=== PATIENT | male | born 1945 | race Caucasian/White ===

== ENCOUNTER 2016-11-22 17:14 | Observation (INO) ==
[2016-11-22] MEDS ORDERED: ASPIRIN 325 MG TABLET ONE (17:47)
[2016-11-22] MEDS ORDERED: ASPIRIN 325 MG TABLET PO STA (17:54)
[2016-11-22 18:04] LABS: Basophils # 0.1 10*3/uL (0.0-0.2); Eosinophils # 0.3 10*3/uL (0.0-0.87); Hematocrit 44.5 VOL% (42.0-52.0); Hemoglobin 14.6 GM/DL (14.0-18.0); Immature Granulocytes % 0.4 %; Immature Granulocytes Absolute 0.03 #; Lymphocytes # 1.6 10*3/uL (1.4-4.0); Lymphocytes % 22.9 % (21.2-54.2); Mean Corpuscular HGB Conc 32.8 GM/DL (32-36); Mean Corpuscular Hemoglobin 28 PG (27-34); Mean Corpuscular Volume 85.2 FL (87-102); Mean Platelet Volume 10.9 FL (9.6-12.0); Monocytes # 0.7 10*3/uL (0.11-0.8); Monocytes % 10.6 % (1.7-12.7); Neutrophils # 4.3 10*3/uL (1.4-7.4); Neutrophils % 61.1 % (38.7-73.9); Platelet Count 183 T/CUMM (130-400); Red Blood Count 5.22 MC/CUMM (3.8-5.5); Red Cell Distribution Width 14.4 % (9.3-17.3)
[2016-11-22 18:06] LABS: INR 1.1; PT Patient Result 11.4 SECS
--- NOTE | 2016-11-22 18:27 | XRay Report ---
XR chest 1V portable Indication: Chest pain. Comparison: Chest x-ray 10/09/2014. Technique: Portable AP chest was performed. Findings: Mild cardiomegaly appears stable. Sternal wires are unchanged. Cervical fusion is present. Lungs are clear. Bones and soft tissues are unremarkable. Impression: 1. No evidence of acute pathology. 2. Stable mild cardiomegaly. 11/22/2016 6:23 PM PROCEDURE INTERPRETED AT [facility] DEPARTMENT OF RADIOLOGY Final Report Signed by: Dr. Peter Abreu
[2016-11-22 18:40] LABS: Alanine Aminotransferase 43 U/L (16-61); Alkaline Phosphatase 144 U/L (45-117); Aspartate Amino Transferase 47 U/L (0-37); Blood Urea Nitrogen 12 MG/DL (7-18); Glucose 89 MG/DL (74-106); Magnesium 2.5 MG/DL (1.8-2.4); Osmolality,Calculated 279.3 MOS/KG (273-304); Sodium 141 MMOL/L (136-145); Total Protein 7.1 G/DL (6.4-8.3); Troponin I Only < 0.015 NG/ML (0.00-0.045)
[2016-11-22] MEDS ORDERED: NITROGLYCERIN SL 0.4 MG TABLET SL STA (18:51)
[2016-11-22] MEDS ORDERED: FUROSEMIDE 40 MG/4 ML VIAL IV STA (19:35)
[2016-11-22] MEDS ORDERED: FUROSEMIDE 40 MG/4 ML VIAL ONE (19:37)
[2016-11-22] MEDS ORDERED: MAGNESIUM SULF RIDER 4 GM in PREMIX 1 EACH IV PRN (19:52)
[2016-11-22] MEDS ORDERED: ONDANSETRON 4 MG/2 ML VIAL IV PRN (19:52)
[2016-11-22] MEDS ORDERED: ACETAMINOPHEN 325 MG TABLET PO PRN (19:52)
[2016-11-22] MEDS ORDERED: MAGNESIUM SULF RIDER 2 GM in PREMIX 1 EACH IV PRN (19:52)
[2016-11-22] MEDS ORDERED: MORPHINE 2 MG/1 ML SYRINGE IV PRN (19:52)
--- NOTE | 2016-11-22 19:52 | Emergency Department Note ---
IMichel Mantricia, am scribing for, and in the presence of, Marisabel Nichols DO 18:49. ISimone Debra, DO, personally performed the services described in this documentation, ascribed by Pranav Pearson in my presence, and it is both accurate and complete 950 . Arrival - Arrival Chief Complaint: Chest Pain Stated Complaint: chest pain ED Nursing Triage Note: Pt c/o left sided chest pain under his left breast worse with inspiration/sneezing since this am but also having weakness this week. Mode of Arrival: Ambulatory Limitations: No Limitations Source: Patient - History of Present Illness HPI Narrative: Pt is a 71 y/o white male ambulating to ED with c/o left sided chest pain that onset this morning. Pt's photographer assistant is Dr. Bryant; his PCP is Dr. Lucero. He states that he is no pain at time of exam but does reports that the pain worsens with deep breaths. Since being in ED, pt was given ASA and states that he does feel some relief. Pt has a PSHx of CABG and has a PMHx of CVA, CAD, HTN , Afib, and COPD. He is currently taking hypertensives and reports that he did take his medication this morning. At time of exam, pt's heart rate is 67 and has a blood pressure of 173/95. No other complaints were reported to ED. Onset (ago): hour(s) Consistency: constant Severity: mild Allergies/Adverse Reactions: Allergies Allergy/AdvReac Type Severity Reaction Status Date / Time Shellfish Allergy Unknown/Unable Verified 01/18/15 06:30 to obtain Home Medications: Home Medications Medication Instructions Recorded Confirmed Type Clopidogrel [Plavix] 75 mg PO DAILY 01/18/15 02/16/15 History Ferrous Sulfate [Ferrous Sulfate 325 mg PO TID 01/18/15 02/16/15 History Cap] Aspirin EC Tab 81 mg PO DAILY tablet 01/20/15 02/16/15 Rx Furosemide Tab [Lasix Tab] 40 mg PO DAILY #30 tablet 01/20/15 02/16/15 Rx Isosorbide Mononitrate [Imdur] 30 mg PO DAILY #30 tablet 01/20/15 02/16/15 Rx Potassium Chloride 20 meq PO DAILY #30 tablet.er 01/20/15 02/16/15 Rx Sertraline [Zoloft] 50 mg PO BEDTIME #30 tablet 01/20/15 02/16/15 Rx Spironolactone [Aldactone] 25 mg PO DAILY #30 tablet 01/20/15 02/16/15 Rx Atorvastatin Calcium [Lipitor] 80 mg PO BEDTIME 02/16/15 02/16/15 History Lisinopril [Prinivil] 20 mg PO BID 02/16/15 02/16/15 History Review of System - Review of System Constitutional: Absent: chills, diaphoresis, fever Eyes: Absent: pain Respiratory: Absent: cough Cardiovascular: Present: chest pain. Absent: palpitations Gastrointestinal: Absent: abdominal pain, nausea, vomiting, diarrhea Musculoskeletal: Absent: arm pain, back pain, leg pain, neck pain Medical,Surgical,& Family Hx - Medical History Cardio: History of: Cerebrovascular Disease, CAD, Hypertension, Cardiovascular Problems (atrial fibrillation cardioverted by Dr. 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) Respiratory: History of: COPD Genitourinary: History of: Kidney Stones Gastrointestinal: No history of: GI Problems (refuses colonoscopy) Musculoskeletal: History of: Musculoskeletal Problems (arthritis to R knee) Hematology: History of: Anemia, Blood Transfusion Reaction - Surgical History Cardiac Surgeries: Sugical HX of: Femoral-Popliteal Bypass Graft, Cardiac Catheterization, Cardiac Surgery (Cabg) Thoracic Surgeries: Patient denies;: Organ Transplant HEENT Surgeries: Surgical HX of: Eye Surgery Patient denies: Tonsilectomy & Adenoidectomy Reproductive Surgeries: Patient denies;: Genitourinary Surgery - Family History Family History: Reports;: Family Heart Disease (brother), Family Hypertension - Social History Smoking Status: Never smoker Exam Vital Signs: Vital Signs Temperature 97.6 F 11/22/16 17:23 Pulse Rate 60 11/22/16 19:00 Respiratory Rate 20 11/22/16 19:00 Blood Pressure 156/105 11/22/16 19:00 O2 Sat by Pulse Oximetry 99 11/22/16 19:00 - General General appearance: alert, in no apparent distress - Head Head exam: Present: atraumatic, normocephalic, normal inspection - Eye Eye exam: Present: normal appearance, PERRL, EOMI - ENT ENT exam: Present: normal exam, normal oropharynx, mucous membranes moist, TM's normal bilaterally, normal external ear exam - Neck Neck exam: Present: normal inspection, full ROM, trachea midline. Absent: tenderness - Chest Chest inspection: Present: normal inspection, symmetric chest wall rise. Absent : tenderness - Respiratory Respiratory exam: Present: normal lung sounds bilaterally - Cardiovascular Cardiovascular exam: Present: regular rate, normal rhythm, normal heart sounds - Abdominal Exam Abdominal exam: Present: soft, normal bowel sounds. Absent: distention, tenderness, guarding, rebound - Extremities Exam Extremities exam: Present: full ROM, normal capillary refill, other (+1 nonpitting edema LE bilat). Absent: tenderness - Back Exam Back exam: Present: normal inspection, full ROM. Absent: tenderness - Neurological Exam Neurological exam: Present: alert, oriented X3, CN II-XII intact, normal gait, reflexes normal - Psychiatric Psychiatric exam: Present: normal affect, normal mood - Skin Skin exam: Present: warm, dry, intact, normal color Course Course Narrative: with Dr Nieves who will admit pt. pt is stable at this time and not having any chest pain Results - Labs CBC & BMP: 11/22/16 17:48 11/22/16 17:48 Lab Results: I have reviewed the patients labs - EKG EKG results: interpreted by LALITHA MABRY, no acute changes - Diagnostic Findings Procedure: Chest x-ray: report reviewed by me (1. No evidence of acute pathology. 2. Stable mild cardiomegaly.) Disposition Clinical Impression: Atypical chest pain Case discussed with: patient, patient's family Disposition: Still a Patient Condition: Stable Time of Disposition: 19:52
[2016-11-22 20:00] LABS: Band Neutrophils 1 % (0-10); Burr Cells Few; Eosinophils 2 % (0-10); Lymphocytes 21 % (20-55); Ovalocytes Few; Platelet Estimate Normal; Poikilocytosis 1+; Segmented Neutrophils 70 % (50-85); Total Cells Counted 100
[2016-11-22] MEDS ORDERED: ENOXAPARIN 40 MG/0.4 ML SYRINGE SUBCUT SCH (20:00)
[2016-11-22 20:01] LABS: Apearance,Urine CLOUDY (Clear); Bacteria,Urine Few /HPF (Few); Bilirubin,Urine Negative (Negative); Blood, Urine Negative (Negative); Glucose,Urine (UA) Negative (Negative); Ketones,Urine Negative (Negative); Mucus,Urine Occasional /LPF (Occasional); Nitrite,Urine Negative (Negative); Protein,Urine Negative; RBC,Urine 2 /HPF (0-4); Urine Color Yellow (Yellow); Urine Specific Gravity 1.013 (1.001-1.035); WBC,Urine 2 /HPF (0-6)
[2016-11-22 20:01] LABS: Tear Drop Cells Few
--- NOTE | 2016-11-23 02:54 | EKG Report ---
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
--- NOTE | 2016-11-23 04:14 | EKG Report ---
Stationary ECG Study [facility] Test Date: 11/23/2016 4:11:28 AM Pat Name: MADAI AGRAWAL Department: Room: 285 Gender: M Respiratory Physician: Demetrius : 1945 Requested by: Marisabel Nichols Order Number: [id number] Reading MD: NICK MOSS Intervals [place] Rate: 69 P: 65 ID: 175 QRS: 109 QRSD: 103 T: 60 QT: 430 QTc: 450 Interpretive Statements SINUS RHYTHM WITH FREQUENT VENTRICULAR PREMATURE COMPLEXES ABNORMAL RIGHT AXIS DEVIATION INCOMPLETE RIGHT BUNDLE BRANCH BLOCK Electronically Signed On 11-25-16 18:39:24 CDT by NICK MOSS [email or web address]
[2016-11-23 05:50] LABS: Troponin I Only 0.016 NG/ML (0.00-0.045)
[2016-11-23] MEDS ORDERED: CLOPIDOGREL 75 MG TABLET PO SCH (09:00)
[2016-11-23] MEDS ORDERED: TAMSULOSIN 0.4 MG CAPSULE PO SCH (09:00)
[2016-11-23] MEDS ORDERED: LISINOPRIL 20 MG TABLET PO SCH (09:00)
[2016-11-23] MEDS ORDERED: CARVEDILOL 6.25 MG TABLET PO SCH (09:00)
[2016-11-23] MEDS ORDERED: ASPIRIN EC 81 MG TABLET PO SCH (09:00)
[2016-11-23] MEDS ORDERED: hydrALAZINE 20 MG/1 ML VIAL IV PRN (09:25)
--- NOTE | 2016-11-23 09:27 | Cardiology History & Physical ---
Addendum entered and electronically signed by Ann Tomlin NP 11/23/16 14:07 : The patient has undergone echocardiogram today which revealed EF 45%, normal diastolic function, mild LVH, mild left atrial enlargement, mild MR, mild TR. Right upper quadrant ultrasound revealed cholelithiasis with simple appearing right renal cyst. Venous dopplers were negative for DVT. CT chest suggested no evidence of PE but did reveal multiple nodular densities present closely in the upper lobes, majority peripheral and the largest estimated to be 8mm in size, possibly representing septic emboli, although metastatic disease could not be excluded. Original Note: <Ann Tomlin - Last Filed: 11/23/16 13:26> Assessment and Plan - Time spent with patient Time spent with patient: Greater than 30 minutes (due to assessment, plan, and documentation) (1) Chest pain Status: Acute Assessment and plan: See plan of care listed below. Current Visit: No (2) Painful respiration Status: Acute Assessment and plan: See plan of care listed below. Current Visit: Yes (3) Fatigue Status: Acute Assessment and plan: See plan of care listed below. Current Visit: Yes (4) Bilateral lower extremity edema Status: Acute Assessment and plan: See plan of care listed below. Current Visit: Yes (5) Elevated bilirubin Status: Acute Assessment and plan: See plan of care listed below. Current Visit: Yes (6) Coronary artery disease Status: Chronic Assessment and plan: See plan of care listed below. Current Visit: No (7) Ischemic dilated cardiomyopathy Status: Chronic Assessment and plan: See plan of care listed below. Current Visit: No (8) Hypertension Status: Chronic Assessment and plan: See plan of care listed below. Current Visit: No Qualifiers: Hypertension type: essential hypertension Qualified Code(s): I10 - Essential (primary) hypertension (9) Dyslipidemia Status: Chronic Assessment and plan: See plan of care listed below. Current Visit: No (10) History of CVA (cerebrovascular accident) Status: Chronic Assessment and plan: See plan of care listed below. Current Visit: Yes History of Present Illness Chief complaint: chest pain History of present illness: Vocational Training Director: Dr. Bryant PCP: Dr. Zimmer Mr. Yen is a 71 year old male with a history of coronary artery disease, ischemic cardiomyopathy, hypertension, dyslipidemia, prior stroke. He is a lifetime nonsmoker. He is status post coronary artery bypass grafting with vein grafts to the anterior descending, diagonal, circumflex, and right coronary arteries by Dr. Krishnamurthy on 10/01/14. Upon induction of anesthesia, he experienced hypotension leading to ventricular fibrillation with unsuccessful cardioversion. He was subsequently prepped emergently for bypass surgery. Following bypass surgery, he underwent FISHER EEL PCI of the SVG to the dRCA/PDA with drug eluting stents x3, and PCI of the ostium of the SVG to the LAD with a single drug eluting stent. His status post CVA in 2013. 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 Mr. Yen presented to the emergency room with complaints of chest discomfort. He reports yesterday morning he woke up with pain in his left rib cage beneath his breast. He only notices this pain whenever he takes a deep breath. He states it feels like he has pulled a muscle. He can identify no other exacerbating or alleviating factors. He denies exertional chest pain but does have some dyspnea on exertion. His is at the bedside and she notes that he seems to have a lack of energy lately. He has also noticed some indigestion the past couple of days. 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 He also notes that last weekend he was at a team roping event and was on a horse approximately 6 hours each day. He denies any recent palpitations, nausea, vomiting, diarrhea, constipation, melena. He does admit to occasional bilateral lower extremity edema. He has had negative cardiac biomarkers but EKG revealed frequent PVCs which appeared to be a new finding for him when compared to prior EKGs. Given his history and present symptoms, we will proceed with nuclear stress testing to rule out new or worsening ischemia. He was also noted to have an elevated bilirubin but denies right upper quadrant pain or right shoulder pain or nausea or vomiting. We will check an abdominal ultrasound. Given the nature of his dyspnea, we will also rule out PE. Will await further recommendations from Dr. Marte. ASSESSMENT/PLAN: 1. CHEST PAIN - Although his chest pain is atypical in nature, he does report recent easy fatiguability. EKG also reveals frequent PVCs which appears to be a new finding for him when reviewing prior records. His cardiac biomarkers are negative. We will proceed with nuclear stress testing. 2. PAINFUL INSPIRATION - Given his history of CVA and current presentation, we will obtain CT chest PE protocol to rule out PE. 3. FATIGUE - Will schedule for nuclear stress testing for today. 4. BLE EDEMA - Check BLE venous dopplers to rule out DVT. 5. ELEVATED BILIRUBIN - Denies abdominal pain, nausea, or vomiting. Will check abdominal ultrasound. 6. CORONARY ARTERY DISEASE - He is status post coronary artery bypass grafting with vein grafts to the anterior descending, diagonal, circumflex, and right coronary arteries by Dr. Krishnamurthy on 10/01/14. Upon induction of anesthesia, he experienced hypotension leading to ventricular fibrillation with unsuccessful cardioversion. He was subsequently prepped emergently for bypass surgery. Following bypass surgery, he underwent FISHER EEL PCI of the SVG to the dRCA/PDA with drug eluting stents x3, and PCI of the ostium of the SVG to the LAD with a single drug eluting stent. 7. ISCHEMIC CARDIOMYOPATHY - Last echocardiogram done March 2016 revealed EF 55%. Will recheck echocardiogram. 8. HYPERTENSION - Mildly elevated this morning. Patient is NPO for numerous diagnostic studies this morning. Will monitor and use PRN IV hydralazine if needed prior to patient taking his home medications. Will monitor and adjust accordingly. 9. DYSLIPIDEMIA - Continue lipid lowering agent. Will check lipid panel. 10. HISTORY OF CVA - in 2013, no deficits. Home Medications Medication Instructions Recorded Confirmed Type Clopidogrel [Plavix] 75 mg PO DAILY 01/18/15 11/22/16 History Aspirin EC Tab 81 mg PO DAILY tablet 01/20/15 11/22/16 Rx Sertraline [Zoloft] 50 mg PO BEDTIME #30 tablet 01/20/15 11/22/16 Rx Atorvastatin Calcium [Lipitor] 80 mg PO BEDTIME 02/16/15 11/22/16 History Lisinopril [Prinivil] 20 mg PO BID 02/16/15 11/22/16 History Carvedilol 6.25 mg PO DAILY 11/22/16 11/22/16 History Tamsulosin [Flomax] 0.4 mg PO DAILY 11/22/16 11/22/16 History Allergies Allergy/AdvReac Type Severity Reaction Status Date / Time Shellfish Allergy Unknown/Unable Verified 01/18/15 06:30 to obtain 12 point system: reviewed and no additional remarkable complaints except as stated Medical,Surgical,& Family Hx - Medical History Cardio: History of: Cerebrovascular Disease, CAD, Hypertension, Cardiovascular Problems (atrial fibrillation cardioverted by Dr. Patel 2013) No history of: RI, Pacemaker Psychological: History of: Anxiety Disorders Neurology: History of: Cerebrovascular Accident (right occipital acute CVA 01/02) No history of: Seizures, Vertigo HEENT: History of: Eye Problem (left eye removed as kid FAKE LEFT EYE) Respiratory: History of: COPD Genitourinary: History of: Kidney Stones Gastrointestinal: No history of: GI Problems (refuses colonoscopy) Musculoskeletal: History of: Musculoskeletal Problems (arthritis to R knee) No history of: Amputation Hematology: History of: Anemia, Blood Transfusion Reaction - Surgical History Cardiac Surgeries: Sugical HX of: Femoral-Popliteal Bypass Graft, Cardiac Catheterization, Cardiac Surgery (Cabg) Thoracic Surgeries: Patient denies;: Organ Transplant, Lobectomy HEENT Surgeries: Surgical HX of: Eye Surgery Patient denies: Tonsilectomy & Adenoidectomy Abdominal Surgeries: Patient denies: Abdominal Surgery Reproductive Surgeries: Patient denies;: Genitourinary Surgery - Family History Family History: Reports;: Family Heart Disease (brother), Family Hypertension Denies;: Family Stroke, Additional Family History - Social History Smoking Status: Never smoker Frequency of Alcohol Use: None Type of Drug Use: None Marital Status: Lives With:: Spouse Functional capacity: independent ambulation Cardiology Physical Exam - Constitutional Vitals: Vital Signs Temp Pulse Resp BP Pulse Ox 97.4 F L 65 20 166/82 96 11/23/16 08:00 11/23/16 08:00 11/23/16 08:00 11/23/16 08:00 11/23/16 08:00 Intake and Output 11/22/16 11/23/16 11/23/16 22:59 06:59 14:59 Intake Total 0 / 0 Balance 0 / 0 Intake: Oral 0 / 0 Other: Voiding Method Toilet # Voids 2 Weight 176 lb 3.2 oz 176 lb Exam: General appearance: Pleasant and cooperative. no acute distress. Head exam: Present: normal inspection, normocephalic, atraumatic. Absent: hematoma, laceration Eye exam: Present: EOMI, chronic droop of left eyelid (patient lost his left eye during childhood). Absent: conjunctival injection, nystagmus, periorbital swelling, scleral icterus, laceration to eyelids ENT exam: Present: normal exam, normal external ear exam Neck exam: Present: normal inspection. Absent: lymphadenopathy, meningismus, tenderness, thyromegaly, carotid bruit Respiratory exam: Present: clear to auscultation bilaterally. Absent: accessory muscle use, chest wall tenderness, rales, rhonchi, wheezing. Cardiovascular exam: Present: regular rate and rhythm. Absent: gallop, JVD, rubs, murmur GI/Abdominal exam: Present: normal bowel sounds, soft. Absent: distended, firm , guarding, hernia, mass, tenderness, rebound. Extremities exam: Present: normal inspection, normal capillary refill. Upper extremity pulses 2+. Lower extremity pulses 2+. Absent: calf tenderness, edema Musculoskeletal: Present: No Fluid Collection, No Pain, Normal Range of Motion Back exam: Present: normal inspection. Absent: muscle spasm, vertebral tenderness Neurological exam: Present: alert, oriented X3, grossly intact without resting or essential tremor Psychiatric exam: Present: normal affect, normal mood Skin exam: Present: normal color, warm, dry, intact. Absent: cyanosis, diaphoretic, rash, urticaria Result/EKG - Labs CBC & BMP: 11/22/16 17:48 11/22/16 17:48 Lab Results: I have reviewed the past 24 hour labs Labs: Laboratory Results - last 24 hr 11/22/16 11/22/16 11/22/16 17:48 17:48 17:48 WBC 7.0 RBC 5.22 Hgb 14.6 Hct 44.5 MCV 85.2 L MCH 28 MCHC 32.8 RDW 14.4 Plt Count 183 MPV 10.9 Neut % (Auto) 61.1 Lymph % (Auto) 22.9 [place] % (Auto) 10.6 Eos % (Auto) 4.0 Baso % (Auto) 1.0 H Neut # (Auto) 4.3 Lymph # (Auto) 1.6 [place] # (Auto) 0.7 Eos # (Auto) 0.3 Baso # (Auto) 0.1 Total Counted 100 Immature Gran % 0.4 Nucleated RBC % 0.0 Immature Gran # 0.03 Segmented Neutrophils 70 Band Neutrophils 1 Lymphocytes 21 Monocytes 6 Eosinophils 2 Nucleated RBCs # 0.00 Platelet Estimate Normal Immature Plt Fraction 0.0 Poikilocytosis 1+ Tear Drop Cells Few Ovalocytes Few Chano Cells Few INR 1.1 PT Patient/Control Mix 11.4 Sodium 141 Potassium 4.0 Chloride 108 H Carbon Dioxide 27 Anion Gap 10.0 BUN 12 Creatinine 0.80 GFR Calculation 105 BUN/Creatinine Ratio 15.00 Glucose 89 Calculated Osmolality 279.3 Calcium 8.0 L Magnesium 2.5 H Total Bilirubin 2.10 H AST 47 H ALT 43 Alkaline Phosphatase 144 H Total Creatine Kinase 269 CK-MB (CK-2) < 1.0 Troponin I < 0.015 B-Natriuretic Peptide Total Protein 7.1 Albumin 3.0 L Globulin 4.1 H Albumin/Globulin Ratio 0.7 L Urine Color Urine Appearance Urine pH Ur Specific Stanton Urine Protein Urine Glucose (UA) Urine Ketones Urine Blood Urine Nitrate Urine Bilirubin Urine Urobilinogen Urine Leukocytes Urine RBC Urine WBC Urine WBC Clumps Urine Bacteria Urine Mucus Ur Culture Indicated? 11/22/16 11/22/16 11/23/16 17:48 17:52 04:28 WBC RBC Hgb Hct MCV MCH MCHC RDW Plt Count MPV Neut % (Auto) Lymph % (Auto) [place] % (Auto) Eos % (Auto) Baso % (Auto) Neut # (Auto) Lymph # (Auto) [place] # (Auto) Eos # (Auto) Baso # (Auto) Total Counted Immature Gran % Nucleated RBC % Immature Gran # Segmented Neutrophils Band Neutrophils Lymphocytes Monocytes Eosinophils Nucleated RBCs # Platelet Estimate Immature Plt Fraction Poikilocytosis Tear Drop Cells Ovalocytes Chano Cells INR PT Patient/Control Mix Sodium Potassium Chloride Carbon Dioxide Anion Gap BUN Creatinine GFR Calculation BUN/Creatinine Ratio Glucose Calculated Osmolality Calcium Magnesium Total Bilirubin AST ALT Alkaline Phosphatase Total Creatine Kinase 247 CK-MB (CK-2) < 1.0 Troponin I 0.016 B-Natriuretic Peptide 454 H Total Protein Albumin Globulin Albumin/Globulin Ratio Urine Color Yellow Urine Appearance Cloudy Urine pH 7.0 Ur Specific Stanton 1.013 Urine Protein Negative Urine Glucose (UA) Negative Urine Ketones Negative Urine Blood Negative Urine Nitrate Negative Urine Bilirubin Negative Urine Urobilinogen 2.0 H Urine Leukocytes Negative Urine RBC 2 Urine WBC 2 Urine WBC Clumps Occasional Urine Bacteria Few Urine Mucus Occasional Ur Culture Indicated? Not indicated - EKG EKG results: interpreted by me, sinus rhythm (frequent PVCs) <Ramona Marte - Last Filed: 11/23/16 17:16> History of Present Illness History of present illness: Ann agree. Overall his chest pain symptoms are atypical of cardiac disease and seem more pleuritic in nature. However, he does have a new onset of frequent premature ventricular contractions which could represent ischemia. Accordingly, we will workup both his pleuritic chest pain as well as rule out ischemia. Cardiology Physical Exam - Constitutional Vitals: Vital Signs Temp Pulse Resp BP Pulse Ox 97.3 F L 72 18 123/85 96 11/23/16 16:00 11/23/16 16:00 11/23/16 16:00 11/23/16 16:00 11/23/16 16:00 Intake and Output 11/23/16 11/23/16 11/23/16 07:59 15:59 23:59 Intake Total 0 / 0 480 / 480 Balance 0 / 0 480 / 480 Intake: Oral 0 / 0 480 / 480 Other: Voiding Method Toilet Toilet # Voids 2 2 Weight 79.832 kg Patient Weight 11/23/16 23:59 Weight 79.832 kg Result/EKG - Labs CBC & BMP: 11/22/16 17:48 11/22/16 17:48 Labs: Laboratory Results - last 24 hr 11/22/16 11/22/16 11/22/16 17:48 17:48 17:48 WBC 7.0 RBC 5.22 Hgb 14.6 Hct 44.5 MCV 85.2 L MCH 28 MCHC 32.8 RDW 14.4 Plt Count 183 MPV 10.9 Neut % (Auto) 61.1 Lymph % (Auto) 22.9 [place] % (Auto) 10.6 Eos % (Auto) 4.0 Baso % (Auto) 1.0 H Neut # (Auto) 4.3 Lymph # (Auto) 1.6 [place] # (Auto) 0.7 Eos # (Auto) 0.3 Baso # (Auto) 0.1 Total Counted 100 Immature Gran % 0.4 Nucleated RBC % 0.0 Immature Gran # 0.03 Segmented Neutrophils 70 Band Neutrophils 1 Lymphocytes 21 Monocytes 6 Eosinophils 2 Nucleated RBCs # 0.00 Platelet Estimate Normal Immature Plt Fraction 0.0 Poikilocytosis 1+ Tear Drop Cells Few Ovalocytes Few Chano Cells Few INR 1.1 PT Patient/Control Mix 11.4 D-Dimer, Quantitative Sodium 141 Potassium 4.0 Chloride 108 H Carbon Dioxide 27 Anion Gap 10.0 BUN 12 Creatinine 0.80 GFR Calculation 105 BUN/Creatinine Ratio 15.00 Glucose 89 Calculated Osmolality 279.3 Calcium 8.0 L Magnesium 2.5 H Total Bilirubin 2.10 H AST 47 H ALT 43 Alkaline Phosphatase 144 H Total Creatine Kinase 269 CK-MB (CK-2) < 1.0 Troponin I < 0.015 B-Natriuretic Peptide Total Protein 7.1 Albumin 3.0 L Globulin 4.1 H Albumin/Globulin Ratio 0.7 L Triglycerides Cholesterol LDL Cholesterol VLDL Cholesterol HDL Cholesterol Heart Disease Risk Ratio Urine Color Urine Appearance Urine pH Ur Specific Stanton Urine Protein Urine Glucose (UA) Urine Ketones Urine Blood Urine Nitrate Urine Bilirubin Urine Urobilinogen Urine Leukocytes Urine RBC Urine WBC Urine WBC Clumps Urine Bacteria Urine Mucus Ur Culture Indicated? 11/22/16 11/22/16 11/23/16 17:48 17:52 04:27 WBC RBC Hgb Hct MCV MCH MCHC RDW Plt Count MPV Neut % (Auto) Lymph % (Auto) [place] % (Auto) Eos % (Auto) Baso % (Auto) Neut # (Auto) Lymph # (Auto) [place] # (Auto) Eos # (Auto) Baso # (Auto) Total Counted Immature Gran % Nucleated RBC % Immature Gran # Segmented Neutrophils Band Neutrophils Lymphocytes Monocytes Eosinophils Nucleated RBCs # Platelet Estimate Immature Plt Fraction Poikilocytosis Tear Drop Cells Ovalocytes Wallace Cells INR PT Patient/Control Mix D-Dimer, Quantitative Sodium Potassium Chloride Carbon Dioxide Anion Gap BUN Creatinine GFR Calculation BUN/Creatinine Ratio Glucose Calculated Osmolality Calcium Magnesium Total Bilirubin AST ALT Alkaline Phosphatase Total Creatine Kinase CK-MB (CK-2) Troponin I B-Natriuretic Peptide 454 H Total Protein Albumin Globulin Albumin/Globulin Ratio Triglycerides 72 Cholesterol 113 LDL Cholesterol 63.0 VLDL Cholesterol 14.4 HDL Cholesterol 47 Heart Disease Risk Ratio 2.40 Urine Color Yellow Urine Appearance Cloudy Urine pH 7.0 Ur Specific Stanton 1.013 Urine Protein Negative Urine Glucose (UA) Negative Urine Ketones Negative Urine Blood Negative Urine Nitrate Negative Urine Bilirubin Negative Urine Urobilinogen 2.0 H Urine Leukocytes Negative Urine RBC 2 Urine WBC 2 Urine WBC Clumps Occasional Urine Bacteria Few Urine Mucus Occasional Ur Culture Indicated? Not indicated 11/23/16 11/23/16 04:28 11:44 WBC RBC Hgb Hct MCV MCH MCHC RDW Plt Count MPV Neut % (Auto) Lymph % (Auto) [place] % (Auto) Eos % (Auto) Baso % (Auto) Neut # (Auto) Lymph # (Auto) [place] # (Auto) Eos # (Auto) Baso # (Auto) Total Counted Immature Gran % Nucleated RBC % Immature Gran # Segmented Neutrophils Band Neutrophils Lymphocytes Monocytes Eosinophils Nucleated RBCs # Platelet Estimate Immature Plt Fraction Poikilocytosis Tear Drop Cells Ovalocytes Chano Cells INR PT Patient/Control Mix D-Dimer, Quantitative 0.9 Sodium Potassium Chloride Carbon Dioxide Anion Gap BUN Creatinine GFR Calculation BUN/Creatinine Ratio Glucose Calculated Osmolality Calcium Magnesium Total Bilirubin AST ALT Alkaline Phosphatase Total Creatine Kinase 247 CK-MB (CK-2) < 1.0 Troponin I 0.016 B-Natriuretic Peptide Total Protein Albumin Globulin Albumin/Globulin Ratio Triglycerides Cholesterol LDL Cholesterol VLDL Cholesterol HDL Cholesterol Heart Disease Risk Ratio Urine Color Urine Appearance Urine pH Ur Specific Stanton Urine Protein Urine Glucose (UA) Urine Ketones Urine Blood Urine Nitrate Urine Bilirubin Urine Urobilinogen Urine Leukocytes Urine RBC Urine WBC Urine WBC Clumps Urine Bacteria Urine Mucus Ur Culture Indicated?
[2016-11-23 10:01] LABS: Risk Ratio 2.4; VLDL CHOLESTEROL 14.4 MG/DL
--- NOTE | 2016-11-23 10:29 | Ultrasound Report ---
Venous Doppler ultrasound bilateral lower extremities Indication: Edema Comparison: None available Findings: No evidence of echogenic, noncompressible thrombus seen in the visualized veins of the extremities. Color Doppler venous waveform pattern is within normal limits. Impression: No evidence of deep venous thrombosis. Ultrasound images stored and captured. PROCEDURE INTERPRETED AT [facility] DEPARTMENT OF RADIOLOGY Final Report Signed by: Dr. Parag Mancuso
--- NOTE | 2016-11-23 10:33 | Ultrasound Report ---
Right upper quadrant ultrasound Indication: Abdominal Pain Findings: The liver is normal in size and echogenicity. The gallbladder has small calculi present. The gallbladder wall thickness is 4.5 mm . The common bile duct measures 6.0 mm. The visualized portion of the pancreas appear within normal limits There is a small simple appearing cysts and measures 1.2 x 1.2 x 1.1 cm on the lower pole. Otherwise the right kidney is normal in size and echogenicity and measures 11.0 cm . No free fluid or free air seen. Impression: Cholelithiasis. Simple appearing right renal cyst. No other evidence of abnormality demonstrated. Ultrasound images stored and captured. PROCEDURE INTERPRETED AT [facility] DEPARTMENT OF RADIOLOGY Final Report Signed by: Dr. Parag Mancuso
[2016-11-23] MEDS ORDERED: REGADENOSON 0.4 MG/5 ML SYRINGE IV ONE (11:03)
--- NOTE | 2016-11-23 11:12 | Event Note ---
Patient underwent Cardiolite stress test, transitioning to Lexiscan stress testing due to significant fatigue and moderate dyspnea on exertion. He continued to have frequent PVCs during exam, slightly improved from previous EKG. He was note to have mild ST depression, improved with rest. He had no chest pain, heaviness, or tightness. Symptoms improved with rest. Blood pressure responded appropriately. Patient will now be transitioned to nuclear medicine for final scan. Dr. Marte to read, interpret, and advise.
--- NOTE | 2016-11-23 13:51 | CT Report ---
CT chest pulmonary embolism Indication: Painful inspiration Comparison: 15 June 2015 Technique: Axial CT imaging of the chest is performed with intravenous contrast. Contrast dose is 80 cc of Omnipaque 350. Findings: No thrombus or other abnormality is identified in the pulmonary arteries or veins. The pulmonary vessel caliber is within normal limits. The heart, mediastinum and great vessels appear within normal limits. Multiple nodular densities are present in both lungs, mostly upper lobes. Majority of these are in the periphery with some haziness to the borders. Some of the haziness may be secondary to motion artifact. The largest is estimated up to 8 mm in size Lung parenchyma shows no evidence of airspace disease or abnormal density. No effusion or pneumothorax is present. Multiple small calculi are present on the gallbladder. Impression: No evidence of pulmonary thromboembolism. Multiple nodular densities present closely in the upper lobes. The majority of these are peripheral. These could represent septic emboli although metastatic disease cannot be excluded. Correlate with history and clinical findings.. This CT exam was performed using one or more the following dose reduction techniques: Automated exposure control, adjustment of the MA and/or KV according to patient size, or use of iterative reconstruction technique. PROCEDURE INTERPRETED AT [facility] DEPARTMENT OF RADIOLOGY Final Report Signed by: Dr. Parag Mancuso
--- NOTE | 2016-11-23 14:04 | ECHO Report ---
Andrew Yen Exam Date: 11/23/2016 10:44 Referring Physician: Technologist: Ludy Mejía Age: 71 Ht (in): 71 Wt (lb): 176 Gender: M Exam Location: [facility] Echo Indications: HTN, CVD, COPD, A Fib, CAD, Chest pain, Cabg, hx. pacemaker BP: 166 / 82 HR: 65 Rhythm: Sinus / pacemaker Technical Quality: Fair IMPRESSIONS Mildly reduced LV systolic function with regional wall motion as described below, ejection fraction 45%. Normal diastolic function. Mild concentric left ventricular hypertrophy. Mild left atrial enlargement. Mild mitral and tricuspid regurgitation. MEASUREMENTS (Male / Female) Normal Values 2D ECHO LV Diastolic Diameter PLAX 4.2 cm 4.2 - 5.9 / 3.9 - 5.3 cm LV Systolic Diameter PLAX 3.3 cm LV Fractional Shortening PLAX 20.2 % IVS Diastolic Thickness 1.4 cm 0.6 - 1.0 / 0.6 - 0.9 cm LVPW Diastolic Thickness 1.2 cm 0.6 - 1.0 / 0.6 - 0.9 cm RV Internal Dim ED PLAX 2.5 cm Aortic Root Diameter 2.7 cm LA Systolic Diameter LX 4.1 cm 3.0 - 4.0 / 2.7 - 3.8 cm DOPPLER TR Peak Velocity 179.0 cm/s TR Peak Gradient 12.8 mmHg FINDINGS Left Ventricle Normal left ventricular cavity size. Mild concentric left ventricular hypertrophy with diastolic dysfunction. Left ventricular ejection fraction is estimated at 45%. The inferior wall is hypokinetic. Right Ventricle Normal right ventricular size. Right Atrium Normal size. Left Atrium The left atrium is mildly enlarged. Mitral Valve Mildly thickened mitral valve with mild mitral regurgitation. Aortic Valve The aortic valve is trileaflet and has normal motion. Tricuspid Valve Morphologically normal tricuspid valve. Trace tricuspid valve regurgitation. Tricuspid regurgitation velocities suggest a PAP of 12.8 mmHg + RAP. Pulmonic Valve Morphologically normal pulmonic valve. Pericardium No pericardial effusion. Aorta Normal size aortic root and proximal ascending aorta. Ramona Marte MD (Electronically Signed) Final Date: 23 November 2016 14:03
--- NOTE | 2016-11-23 16:04 | Pulmonology Consult Note ---
Assessment and Plan (1) Multiple pulmonary nodules Status: Acute Assessment and plan: The patient's CT shows multiple pulmonary nodules. These were not present in 2016. The largest is 8 mm. This possibly could be due to metastatic disease. He will probably need at least some screening for GI malignancy and these nodules will certainly need to be followed. These are too small to be biopsied short of surgery. Current Visit: Yes (2) Atypical chest pain Status: Acute Assessment and plan: Patient has mild left chest pain that may be pleuritic and is getting better. Current Visit: Yes (3) Elevated bilirubin Status: Acute Assessment and plan: The patient's ultrasound shows gallstones but he probably needs a CT of his abdomen. Current Visit: Yes (4) Fatigue Status: Acute Assessment and plan: The patient has had fatigue for several weeks at least and it is not clear if something is going on or this is his cardiomyopathy. Current Visit: Yes (5) History of CVA (cerebrovascular accident) Status: Chronic Assessment and plan: The patient has had a history of a mild CVA in the past Current Visit: Yes (6) Depression Status: Chronic Assessment and plan: The patient certainly looks depressed a little. Current Visit: No (7) Hypertension Status: Chronic Assessment and plan: He will continue with his blood pressure medicines. Current Visit: No Qualifiers: Hypertension type: essential hypertension Qualified Code(s): I10 - Essential (primary) hypertension (8) Ischemic dilated cardiomyopathy Status: Chronic Assessment and plan: Patient has known ischemic heart disease and is being evaluated by cardiology. Current Visit: No History of Present Illness Chief complaint: Pleuritic chest pain History of present illness: Mr. Yen is a 71 year old white male that has known coronary artery disease and has an ischemic cardiomyopathy. He does have a history of hypertension and hyperlipidemia. He is a lifetime non-smoker with no history of lung disease. He has had bypass surgery in the past and has had stents done. He apparently has peripheral vascular disease also. He came in with a few days of left-sided pleuritic chest pain. He thinks he may have pulled a muscle. This pain is actually better and is not had definite angina. He has been having some fatigue lately but no definite weight loss. He has not had that great of appetite. He has no cough or shortness of breath or other symptoms. Home Medications Medication Instructions Recorded Confirmed Type Clopidogrel [Plavix] 75 mg PO DAILY 01/18/15 11/22/16 History Aspirin EC Tab 81 mg PO DAILY tablet 01/20/15 11/22/16 Rx Sertraline [Zoloft] 50 mg PO BEDTIME #30 tablet 01/20/15 11/22/16 Rx Atorvastatin Calcium [Lipitor] 80 mg PO BEDTIME 02/16/15 11/22/16 History Lisinopril [Prinivil] 20 mg PO BID 02/16/15 11/22/16 History Carvedilol [Carvedilol] 6.25 mg PO DAILY 11/22/16 11/22/16 History Tamsulosin [Flomax] 0.4 mg PO DAILY 11/22/16 11/22/16 History Allergies Allergy/AdvReac Type Severity Reaction Status Date / Time Shellfish Allergy Unknown/Unable Verified 01/18/15 06:30 to obtain - Constitutional Constitutional: Present: fatigue. Absent: chills, fever(s), weight loss - EENT Eyes: Absent: loss of vision Ears: Absent: decreased hearing Nose, mouth and throat: Absent: dysphagia, headache(s), sinus pressure - Cardiovascular Cardiovascular: Present: chest pain at rest. Absent: chest pain with activity, dyspnea, orthopnea, palpitations - Respiratory Respiratory: Present: pain on inspiration. Absent: cough, hemoptysis, wheezing , change in phlegm color - Gastrointestinal Gastrointestinal: Absent: abdominal pain, change in bowel habits, dysphagia, melena, nausea, vomiting - Genitourinary Genitourinary: Present: difficulty urinating. 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 Absent: scleral icterus - ENT ENT exam: Present: normal exam - Neck Neck exam: Present: normal inspection. Absent: lymphadenopathy, thyromegaly - Respiratory Respiratory exam: Present: clear to auscultation bilaterally. Absent: wheezes - Cardiovascular Cardiovascular exam: Present: regular rate and rhythm. Absent: gallop, systolic murmur - GI/Abdominal GI/Abdominal exam: Present: normal bowel sounds, soft. Absent: organomegaly, tenderness - Extremities Exam Extremities exam: Absent: calf tenderness, edema - Neurological Exam Neurological exam: Present: alert, oriented X3, CN II-XII intact - Psychiatric Psychiatric exam: Present: normal affect, normal mood - Skin Skin exam: Present: warm, dry Medical,Surgical,& Family Hx - Medical History Cardio: History of: Cerebrovascular Disease, CAD, Hypertension, Cardiovascular Problems (atrial fibrillation cardioverted by Dr. 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) Respiratory: History of: COPD Genitourinary: History of: Kidney Stones Gastrointestinal: No history of: GI Problems (refuses colonoscopy) Musculoskeletal: History of: Musculoskeletal Problems (arthritis to R knee) No history of: Amputation Hematology: History of: Anemia, Blood Transfusion Reaction - Surgical History Cardiac Surgeries: Sugical HX of: Femoral-Popliteal Bypass Graft, Cardiac Catheterization, Cardiac Surgery (Cabg) Thoracic Surgeries: Patient denies;: Organ Transplant, Lobectomy HEENT Surgeries: Surgical HX of: Eye Surgery Patient denies: Tonsilectomy & Adenoidectomy Abdominal Surgeries: Patient denies: Abdominal Surgery Reproductive Surgeries: Patient denies;: Genitourinary Surgery - Family History Family History: Reports;: Family Heart Disease (brother), Family Hypertension Denies;: Family Stroke, Additional Family History - Social History Smoking Status: Never smoker Frequency of Alcohol Use: None Type of Drug Use: None Results - Labs CBC & BMP: 11/22/16 17:48 11/22/16 17:48 - Diagnostic Findings Procedure: Chest x-ray: image reviewed by me, report reviewed by me (Chest x- ray shows cardiomegaly but otherwise looks unremarkable.), CT - chest: image reviewed by me, report reviewed by me (There are multiple small peripheral nodule, the largest is 8 mm. These were not present in 2016.)
[2016-11-23 16:32] VITALS: BP 123/85
--- NOTE | 2016-11-23 16:59 | Discharge Summary ---
Addendum entered and electronically signed by Ann Tomlin NP 11/23/16 17:18 : Patient's Coreg will be increased to 6.25mg PO BID at discharge. New prescription will be sent to [facility] ([place]) in [place]. Also, please arrange for patient to grain picker 24 hour holter monitor from [facility] on Saturday morning. Original Note: Hospital Course - Hospital Course Hospital Course: Hair Boiler: Dr. Bryant PCP: Dr. Zimmer Mr. Yen is a 71 year old male with a history of coronary artery disease, ischemic cardiomyopathy, hypertension, dyslipidemia, prior stroke who presented to the emergency room with complaints of chest discomfort. He has had negative cardiac biomarkers but EKG revealed frequent PVCs which appeared to be a new finding for him when compared to prior EKGs. Although his chest pain is atypical in nature, he does report recent easy fatiguability. Given his history and present symptoms, he underwent nuclear stress testing to rule out new or worsening ischemia, but he did have a large, severe fixed defect in the inferolateral region of unknown chronicity. He has undergone echocardiogram today which revealed EF 45%, normal diastolic function, mild LVH, mild left atrial enlargement, mild MR, mild TR. He had a trivially elevated BNP of 454 with clear chest x-ray and no peripheral edema. He was also noted to have an elevated bilirubin but denies right upper quadrant pain or right shoulder pain or nausea or vomiting. Right upper quadrant ultrasound was performed due to elevated bilirubin and revealed cholelithiasis with simple appearing right renal cyst. D-dimer was 0.9. Venous dopplers were negative for DVT. CT chest suggested no evidence of PE but did reveal multiple nodular densities present closely in the upper lobes, majority peripheral and the largest estimated to be 8mm in size, possibly representing septic emboli, although metastatic disease could not be excluded. Pulmonology was consulted and recommended CT of the abdomen and pelvis without contrast to further evaluate for GI malignancy. This will be scheduled outpatient. At this time, he is very anxious for discharge. His vital signs and labs are stable and he will be discharged home in stable condition to follow up with Dr. Bryant in 1 month. He will also need to follow up with in [address] Montesinos regarding CT results and with Dr. Zimmer. I have personally interviewed and evaluated the patient, reviewed the chart and discussed medical decision-making with practitioner Nabor. I have read this note and agree with her documentation here in. His presenting symptoms appear to be more pleuritic in nature, and he has now been found to have pulmonary nodules that could represent metastatic disease. Patient is anxious to be discharged home so we will continue this workup as an outpatient. He will undergo abdominal CT and I recommended that he also present for his colonoscopy since he has never had one. - Time spent with patient Time with patient DS: Greater than 30 minutes Diagnosis - Discharge Diagnosis (1) Chest pain Status: Resolved (2) Painful respiration Status: Acute (3) Fatigue Status: Chronic (4) Bilateral lower extremity edema Status: Chronic (5) Elevated bilirubin Status: Acute (6) Coronary artery disease Status: Chronic (7) Ischemic dilated cardiomyopathy Status: Chronic (8) Hypertension Status: Chronic (9) Dyslipidemia Status: Chronic (10) History of CVA (cerebrovascular accident) Status: Chronic Specialty Discharge - Follow Up or Referrals Follow up with: Nitish Montesinos MD [Physician] - 2 Weeks (Please schedule patient for outpatient CT of the abdomen and pelvis within [address] Montesinos's orders. He then needs to follow up with Dr. Montesinos in 1-[address] ) Louis Zimmer MD [Physician] - 2 Weeks (Follow up with Dr. Zimmer within 2 weeks. ) Daija Bryant DO [Physician] - 1 Month Discharge Plan - Discharge Data Disposition: Disch To Home/Self Care Condition at Discharge: Stable Discharge Diet: heart healthy, low fat, low cholesterol Activity: resume usual activities as tolerated Hygiene: no restrictions Weight Bearing at Discharge: full weight bearing Driving: no restrictions Contact your physician if you experience:: fever over 101, Difficulty voiding, Nausea/Vomiting, Shortness of breath, pain uncontrolled by pain medications - Discharge Medications Continue Clopidogrel [Plavix] 75 mg PO DAILY Aspirin EC Tab 81 mg PO DAILY tablet Sertraline [Zoloft] 50 mg PO BEDTIME #30 tablet Lisinopril [Prinivil] 20 mg PO BID Atorvastatin Calcium [Lipitor] 80 mg PO BEDTIME Tamsulosin [Flomax] 0.4 mg PO DAILY Changed Carvedilol 6.25 mg PO BID #60 tablet - Follow Up or Referral Follow Up: Louis Zimmer MD [Physician] - 2 Weeks (Follow up with Dr. Zimmer within 2 weeks. ) Nitish Montesinos MD [Physician] - 2 Weeks (Please schedule patient for outpatient CT of the abdomen and pelvis within [address] Montesinos's orders. He then needs to follow up with Dr. Montesinos in 1-[address] ) Daija Bryant DO [Physician] - 1 Month - Forms/Instructions Exam - Constitutional Vitals: Period Temp Pulse Resp BP Sys/Bagley Pulse Ox Last 24 Hr 97.3 F-99.3 F 59-73 17-22 123-178/61-105 95-100 Exam: General appearance: Pleasant and cooperative. no acute distress. Head exam: Present: normal inspection, normocephalic, atraumatic. Absent: hematoma, laceration Eye exam: Present: EOMI, chronic droop of left eyelid (patient lost his left eye during childhood). Absent: conjunctival injection, nystagmus, periorbital swelling, scleral icterus, laceration to eyelids ENT exam: Present: normal exam, normal external ear exam Neck exam: Present: normal inspection. Absent: lymphadenopathy, meningismus, tenderness, thyromegaly, carotid bruit Respiratory exam: Present: clear to auscultation bilaterally. Absent: accessory muscle use, chest wall tenderness, rales, rhonchi, wheezing. Cardiovascular exam: Present: regular rate and rhythm. Absent: gallop, JVD, rubs, murmur GI/Abdominal exam: Present: normal bowel sounds, soft. Absent: distended, firm , guarding, hernia, mass, tenderness, rebound. Extremities exam: Present: normal inspection, normal capillary refill. Upper extremity pulses 2+. Lower extremity pulses 2+. Absent: calf tenderness, edema Musculoskeletal: Present: No Fluid Collection, No Pain, Normal Range of Motion Back exam: Present: normal inspection. Absent: muscle spasm, vertebral tenderness Neurological exam: Present: alert, oriented X3, grossly intact without resting or essential tremor Psychiatric exam: Present: normal affect, normal mood Skin exam: Present: normal color, warm, dry, intact. Absent: cyanosis, diaphoretic, rash, urticaria Discharge Results Procedures and tests throughout hospitalization: Pending Orders 11/24/16 04:00 CT abdomen pelvis wo con IN AM BMP w/ Mg [Basic Metabolic Panel w/Mg] IN AM Comp Blood Count Auto Diff IN AM 11/25/16 04:00 BMP w/ Mg [Basic Metabolic Panel w/Mg] IN AM Comp Blood Count Auto Diff IN AM 11/26/16 04:00 BMP w/ Mg [Basic Metabolic Panel w/Mg] IN AM Comp Blood Count Auto Diff IN AM Labs on day of discharge: Labs from last 24 hours 11/23/16 11/23/16 11/23/16 11:44 04:28 04:27 WBC RBC Hgb Hct MCV MCH MCHC RDW Plt Count MPV Neut % (Auto) Lymph % (Auto) Lamar % (Auto) Eos % (Auto) Baso % (Auto) Neut # (Auto) Lymph # (Auto) Lamar # (Auto) Eos # (Auto) Baso # (Auto) Total Counted Immature Gran % Nucleated RBC % Immature Gran # Segmented Neutrophils Band Neutrophils Lymphocytes Monocytes Eosinophils Nucleated RBCs # Platelet Estimate Immature Plt Fraction Poikilocytosis Tear Drop Cells Ovalocytes Chano Cells INR PT Patient/Control Mix D-Dimer, Quantitative 0.9 Sodium Potassium Chloride Carbon Dioxide Anion Gap BUN Creatinine GFR Calculation BUN/Creatinine Ratio Glucose Calculated Osmolality Calcium Magnesium Total Bilirubin AST ALT Alkaline Phosphatase Total Creatine Kinase 247 CK-MB (CK-2) < 1.0 Troponin I 0.016 B-Natriuretic Peptide Total Protein Albumin Globulin Albumin/Globulin Ratio Triglycerides 72 Cholesterol 113 LDL Cholesterol 63.0 VLDL Cholesterol 14.4 HDL Cholesterol 47 Heart Disease Risk Ratio 2.40 Urine Color Urine Appearance Urine pH Ur Specific [place] Urine Protein Urine Glucose (UA) Urine Ketones Urine Blood Urine Nitrate Urine Bilirubin Urine Urobilinogen Urine Leukocytes Urine RBC Urine WBC Urine WBC Clumps Urine Bacteria Urine Mucus Ur Culture Indicated? 11/22/16 11/22/16 11/22/16 17:52 17:48 17:48 WBC RBC Hgb Hct MCV MCH MCHC RDW Plt Count MPV Neut % (Auto) Lymph % (Auto) Lamar % (Auto) Eos % (Auto) Baso % (Auto) Neut # (Auto) Lymph # (Auto) Lamar # (Auto) Eos # (Auto) Baso # (Auto) Total Counted Immature Gran % Nucleated RBC % Immature Gran # Segmented Neutrophils Band Neutrophils Lymphocytes Monocytes Eosinophils Nucleated RBCs # Platelet Estimate Immature Plt Fraction Poikilocytosis Tear Drop Cells Ovalocytes Chano Cells INR PT Patient/Control Mix D-Dimer, Quantitative Sodium 141 Potassium 4.0 Chloride 108 H Carbon Dioxide 27 Anion Gap 10.0 BUN 12 Creatinine 0.80 GFR Calculation 105 BUN/Creatinine Ratio 15.00 Glucose 89 Calculated Osmolality 279.3 Calcium 8.0 L Magnesium 2.5 H Total Bilirubin 2.10 H AST 47 H ALT 43 Alkaline Phosphatase 144 H Total Creatine Kinase 269 CK-MB (CK-2) < 1.0 Troponin I < 0.015 B-Natriuretic Peptide 454 H Total Protein 7.1 Albumin 3.0 L Globulin 4.1 H Albumin/Globulin Ratio 0.7 L Triglycerides Cholesterol LDL Cholesterol VLDL Cholesterol HDL Cholesterol Heart Disease Risk Ratio Urine Color Yellow Urine Appearance Cloudy Urine pH 7.0 Ur Specific [place] 1.013 Urine Protein Negative Urine Glucose (UA) Negative Urine Ketones Negative Urine Blood Negative Urine Nitrate Negative Urine Bilirubin Negative Urine Urobilinogen 2.0 H Urine Leukocytes Negative Urine RBC 2 Urine WBC 2 Urine WBC Clumps Occasional Urine Bacteria Few Urine Mucus Occasional Ur Culture Indicated? Not indicated 11/22/16 11/22/16 17:48 17:48 WBC 7.0 RBC 5.22 Hgb 14.6 Hct 44.5 MCV 85.2 L MCH 28 MCHC 32.8 RDW 14.4 Plt Count 183 MPV 10.9 Neut % (Auto) 61.1 Lymph % (Auto) 22.9 Lamar % (Auto) 10.6 Eos % (Auto) 4.0 Baso % (Auto) 1.0 H Neut # (Auto) 4.3 Lymph # (Auto) 1.6 Lamar # (Auto) 0.7 Eos # (Auto) 0.3 Baso # (Auto) 0.1 Total Counted 100 Immature Gran % 0.4 Nucleated RBC % 0.0 Immature Gran # 0.03 Segmented Neutrophils 70 Band Neutrophils 1 Lymphocytes 21 Monocytes 6 Eosinophils 2 Nucleated RBCs # 0.00 Platelet Estimate Normal Immature Plt Fraction 0.0 Poikilocytosis 1+ Tear Drop Cells Few Ovalocytes Few Chano Cells Few INR 1.1 PT Patient/Control Mix 11.4 D-Dimer, Quantitative Sodium Potassium Chloride Carbon Dioxide Anion Gap BUN Creatinine GFR Calculation BUN/Creatinine Ratio Glucose Calculated Osmolality Calcium Magnesium Total Bilirubin AST ALT Alkaline Phosphatase Total Creatine Kinase CK-MB (CK-2) Troponin I B-Natriuretic Peptide Total Protein Albumin Globulin Albumin/Globulin Ratio Triglycerides Cholesterol LDL Cholesterol VLDL Cholesterol HDL Cholesterol Heart Disease Risk Ratio Urine Color Urine Appearance Urine pH Ur Specific [place] Urine Protein Urine Glucose (UA) Urine Ketones Urine Blood Urine Nitrate Urine Bilirubin Urine Urobilinogen Urine Leukocytes Urine RBC Urine WBC Urine WBC Clumps Urine Bacteria Urine Mucus Ur Culture Indicated? DS: Provider Date of admission: 11/22/16 19:52 Primary care physician: . No PCP Attending physician on admission: Alfredo Nieves MD Consults: 11/23/16 13:54 Consult to Physician [CONS] Routine Comment: abnormal Chest CT Consulting Provider: Nitish Montesinos When should Consulting Provider be notified: In am Consult to Specialist Group: Pulmonology Consult Notification Comment: MYA DURÁN SPOKE WITH DR. Lamonte MONTESINOS ABOUT CONSULT AT 1430 11/23/16 Discharging clinician: VERONICA Wheeler Expected date of discharge: 11/23/16
--- NOTE | 2016-11-23 17:11 | Nuclear Medicine Report ---
CARDIOLITE STRESS TEST REFERRING: Ramona Marte MD INTERPRETING: Ramona Marte MD INDICATION: A 71-year-old white male with coronary artery disease, atypical chest pain, PVCs. PROCEDURE: The patient was initially scheduled for an exercise Cardiolite, 10 mCi of Technetium-99 w ere injected for rest imaging. Subsequently, the patient was exercised for Lee protocol, anticipat ed to, but then was converted to Lexiscan due to inability to continue ambulating with symptoms of fa tigue and dyspnea. He achieved maximum heart rate of 112 beats per minute (75% maximum predicted hea rt rate) and 7.1 METS. The patient was then administered Lexiscan 0.4 mg followed by 30 mCi of Techn etium-99 for stress imaging. EKG interpretation was supervised by practitioner Nabor and reviewed by me. The patient did have megan rtness of breath, but not experienced chest discomfort. He had resting ST depression that was minima lly changed with exercise. At rest, there were frequent PVCs that decreased with exercise when santiago red to rest. SPECT images were obtained in the short axis, horizontal, and vertical long axis with gating. Ejecti on fraction is 41%, end-diastolic volume 167 mL, end-systolic volume 98 mL, and stroke volume is 69 m L. There is some mild inferior wall hypokinesis. At rest, there is a large extent, severe intensity perfusion defect involving the inferior, and infer olateral wall. There is also a small, mild defect in the mid anterior wall. With stress imaging, th ere is matched stress to rest perfusion. IMPRESSION: 1. MODERATELY REDUCED LEFT VENTRICULAR SYSTOLIC FUNCTION. 2. LARGE EXTENT SEVERE INTENSITY FIXED PERFUSION WALL DEFECT INVOLVING THE INFERIOR AND INFEROLATERA L WALL. THESE FINDINGS ARE CONSISTENT WITH PRIOR MYOCARDIAL INFARCTION WITH SCAR FORMATION. 3. NO GROSS NUCLEAR EVIDENCE OF REVERSIBLE ISCHEMIA. Procedure performed and interpreted at [facility] Department of Radiology.
[2016-11-23] MEDS ORDERED: SERTRALINE 50 MG TABLET PO SCH (21:00)
[2016-11-23] MEDS ORDERED: ATORVASTATIN 80 MG TABLET PO SCH (21:00)
== END 2016-11-23 18:30 | disposition home or self-care (01) ==
LOC: N.EDINP 17:14 → N.ED 17:14 → N.TELEN 20:11
PROVIDERS: ADMIT Internal Medicine Interventional Cardiology; ATTEND Internal Medicine Interventional Cardiology

== ENCOUNTER 2017-03-19 16:50 | Inpatient (IN) ==
[2017-03-19] MEDS ORDERED: DILTIAZEM 50 MG/10 ML VIAL IV ONE ×2 (17:52→17:53)
[2017-03-19] MEDS ORDERED: DILTIAZEM 100 MG VIAL.ADD IV ONE (17:52)
[2017-03-19] MEDS: DILTIAZEM INJ 100 MG in SODIUM CHLORIDE 0.9% 100 ML IV SCH (18:02)
[2017-03-19] MEDS ORDERED: BISACODYL 5 MG TABLET PO PRN (18:22)
[2017-03-19] MEDS ORDERED: ACETAMINOPHEN 325 MG TABLET PO PRN (18:22)
[2017-03-19] MEDS ORDERED: LORazepam 0.5 MG TABLET PO PRN (18:23)
[2017-03-19] MEDS ORDERED: MAGNESIUM HYDROXIDE SUSP 30 ML UDCUP PO PRN (18:23)
[2017-03-19] MEDS ORDERED: ONDANSETRON 4 MG/2 ML VIAL IV PRN (18:23)
[2017-03-19] MEDS ORDERED: diphenhydrAMINE CAP 25 MG CAPSULE PO PRN (18:23)
[2017-03-19] MEDS ORDERED: CARVEDILOL 12.5 MG TABLET PO SCH (21:00)
[2017-03-19] MEDS ORDERED: LISINOPRIL 20 MG TABLET PO SCH (21:00)
[2017-03-19] MEDS: SOTALOL 80 MG TABLET PO SCH (21:26)
[2017-03-19] MEDS: SERTRALINE 50 MG TABLET PO SCH (21:26)
[2017-03-19] MEDS: ATORVASTATIN 80 MG TABLET PO SCH (21:26)
[2017-03-20] MEDS: ENOXAPARIN 80 MG/0.8 ML SYRINGE SUBCUT SCH ×2 (01:10→11:36)
[2017-03-20 03:23] LABS: Basophils % 0.2 % (0.0-0.8); Eosinophils # 0.1 10*3/uL (0.0-0.87); Eosinophils % 0.6 % (0.00-10.9); Hemoglobin 10.8 GM/DL (14.0-18.0); Immature Granulocytes % 0.5 %; Immature Granulocytes Absolute 0.05 #; Lymphocytes % 10.2 % (21.2-54.2); Mean Corpuscular HGB Conc 31.8 GM/DL (32-36); Mean Corpuscular Hemoglobin 27 PG (27-34); Mean Corpuscular Volume 86.1 FL (87-102); Mean Platelet Volume 12.4 FL (9.6-12.0); Monocytes # 0.9 10*3/uL (0.11-0.8); Monocytes % 8.5 % (1.7-12.7); Neutrophils # 8.1 10*3/uL (1.4-7.4); Platelet Count 203 T/CUMM (130-400); Red Blood Count 3.95 MC/CUMM (3.8-5.5); Red Cell Distribution Width 15.9 % (9.3-17.3); White Blood Count 10.1 T/CUMM (4-12)
[2017-03-20 03:29] LABS: Calcium 8.2 MG/DL (8.5-10.1); Magnesium 2.4 MG/DL (1.8-2.4); Osmolality,Calculated 291.8 MOS/KG (273-304); Potassium 3.9 MMOL/L (3.5-5.1)
[2017-03-20] MEDS: DILTIAZEM INJ 100 MG in SODIUM CHLORIDE 0.9% 100 ML IV SCH ×2 (03:37→17:27)
[2017-03-20] MEDS ORDERED: CLOPIDOGREL 75 MG TABLET PO SCH (09:00)
[2017-03-20] MEDS: SOTALOL 80 MG TABLET PO SCH (11:35)
[2017-03-20] MEDS: LISINOPRIL 20 MG TABLET PO SCH (11:35)
[2017-03-20] MEDS: TAMSULOSIN 0.4 MG CAPSULE PO SCH (11:35)
[2017-03-20] MEDS: ASPIRIN EC 81 MG TABLET PO SCH (11:36)
[2017-03-20] MEDS ORDERED: AMIODARONE INJ 150 MG in DEXTROSE 5% 100 ML IV ONE (17:26)
[2017-03-20] MEDS ORDERED: AMIODARONE INJ 450 MG in DEXTROSE 5% 241 ML IV SCH (18:00)
[2017-03-20] MEDS: ATORVASTATIN 80 MG TABLET PO SCH (21:02)
[2017-03-20] MEDS: SERTRALINE 50 MG TABLET PO SCH (21:02)
[2017-03-20] MEDS: APIXABAN 5 MG TABLET PO SCH (21:02)
[2017-03-21] MEDS: AMIODARONE INJ 450 MG in DEXTROSE 5% 241 ML IV SCH ×2 (00:07→16:39)
[2017-03-21] MEDS: ASPIRIN EC 81 MG TABLET PO SCH (09:06)
[2017-03-21] MEDS: LISINOPRIL 20 MG TABLET PO SCH (09:07)
[2017-03-21] MEDS: APIXABAN 5 MG TABLET PO SCH ×2 (09:07→21:34)
[2017-03-21] MEDS: TAMSULOSIN 0.4 MG CAPSULE PO SCH (09:07)
[2017-03-21] MEDS: ALBUTEROL/IPRATROPIUM 3 ML NEB RESP TX PRN (14:30)
[2017-03-21] MEDS: LORazepam 0.5 MG TABLET PO SCH ×2 (14:42→21:34)
[2017-03-21] MEDS: SODIUM CHLORIDE 0.9% 1,000 ML IV SCH (17:12)
[2017-03-21] MEDS: DILTIAZEM INJ 100 MG in SODIUM CHLORIDE 0.9% 100 ML IV SCH (21:32)
[2017-03-21] MEDS: SERTRALINE 50 MG TABLET PO SCH (21:34)
[2017-03-21] MEDS: ATORVASTATIN 80 MG TABLET PO SCH (21:34)
[2017-03-22] MEDS: ALBUTEROL/IPRATROPIUM 3 ML NEB RESP TX PRN ×2 (04:32→21:40)
[2017-03-22 06:00] LABS: Basophils % 0.2 % (0.0-0.8); Eosinophils # 0.1 10*3/uL (0.0-0.87); Eosinophils % 0.7 % (0.00-10.9); Hematocrit 38.3 VOL% (42.0-52.0); Hemoglobin 11.9 GM/DL (14.0-18.0); Immature Granulocytes % 0.6 %; Immature Granulocytes Absolute 0.09 #; Lymphocytes # 0.9 10*3/uL (1.4-4.0); Lymphocytes % 6.7 % (21.2-54.2); Mean Corpuscular HGB Conc 31.1 GM/DL (32-36); Mean Corpuscular Hemoglobin 27 PG (27-34); Mean Corpuscular Volume 87.4 FL (87-102); Mean Platelet Volume 12.4 FL (9.6-12.0); Monocytes # 1.1 10*3/uL (0.11-0.8); Monocytes % 8.1 % (1.7-12.7); Neutrophils # 11.7 10*3/uL (1.4-7.4); Neutrophils % 83.7 % (38.7-73.9); Platelet Count 231 T/CUMM (130-400); Red Blood Count 4.38 MC/CUMM (3.8-5.5); Red Cell Distribution Width 16.7 % (9.3-17.3)
[2017-03-22 06:27] LABS: Calcium 8.4 MG/DL (8.5-10.1); Magnesium 2.4 MG/DL (1.8-2.4); Osmolality,Calculated 285.1 MOS/KG (273-304); Potassium 3.9 MMOL/L (3.5-5.1)
[2017-03-22] MEDS ORDERED: MIDAZOLAM 10 MG/2 ML VIAL ONE (09:24)
[2017-03-22] MEDS ORDERED: MEPERIDINE 25 MG/1 ML VIAL ONE (09:24)
[2017-03-22] MEDS ORDERED: MEPERIDINE 25 MG/1 ML VIAL IV ONE (09:38)
[2017-03-22] MEDS ORDERED: MIDAZOLAM 2 MG/2 ML VIAL IV ONE (09:38)
[2017-03-22] MEDS: ASPIRIN EC 81 MG TABLET PO SCH (11:39)
[2017-03-22] MEDS: TAMSULOSIN 0.4 MG CAPSULE PO SCH (11:39)
[2017-03-22] MEDS: APIXABAN 5 MG TABLET PO SCH ×2 (11:39→21:22)
[2017-03-22] MEDS: FUROSEMIDE 40 MG TABLET PO SCH (11:39)
[2017-03-22] MEDS: LISINOPRIL 20 MG TABLET PO SCH (11:39)
[2017-03-22] MEDS: AMIODARONE 200 MG TABLET PO SCH ×2 (11:41→21:22)
[2017-03-22] MEDS: LORazepam 0.5 MG TABLET PO SCH ×3 (11:42→21:22)
[2017-03-22] MEDS: AMIODARONE INJ 450 MG in DEXTROSE 5% 241 ML IV SCH ×2 (14:03→22:07)
[2017-03-22] MEDS: SODIUM CHLORIDE 0.9% 1,000 ML IV SCH (17:44)
[2017-03-22] MEDS: ATORVASTATIN 80 MG TABLET PO SCH (21:22)
[2017-03-22] MEDS: SERTRALINE 50 MG TABLET PO SCH (21:23)
[2017-03-23 04:57] LABS: Basophils % 0.2 % (0.0-0.8); Eosinophils # 0.1 10*3/uL (0.0-0.87); Eosinophils % 1.1 % (0.00-10.9); Hematocrit 37.4 VOL% (42.0-52.0); Hemoglobin 11.8 GM/DL (14.0-18.0); Immature Granulocytes % 0.5 %; Immature Granulocytes Absolute 0.06 #; Lymphocytes # 0.8 10*3/uL (1.4-4.0); Lymphocytes % 6.6 % (21.2-54.2); Mean Corpuscular HGB Conc 31.6 GM/DL (32-36); Mean Corpuscular Hemoglobin 28 PG (27-34); Mean Corpuscular Volume 87.6 FL (87-102); Mean Platelet Volume 10.9 FL (9.6-12.0); Monocytes # 0.8 10*3/uL (0.11-0.8); Monocytes % 6.7 % (1.7-12.7); Neutrophils # 10.5 10*3/uL (1.4-7.4); Neutrophils % 84.9 % (38.7-73.9); Platelet Count 198 T/CUMM (130-400); Red Blood Count 4.27 MC/CUMM (3.8-5.5); Red Cell Distribution Width 16.8 % (9.3-17.3); White Blood Count 12.4 T/CUMM (4-12)
[2017-03-23] MEDS: APIXABAN 5 MG TABLET PO SCH ×2 (08:32→22:16)
[2017-03-23] MEDS: FUROSEMIDE 40 MG TABLET PO SCH (08:32)
[2017-03-23] MEDS: ASPIRIN EC 81 MG TABLET PO SCH (08:33)
[2017-03-23] MEDS: TAMSULOSIN 0.4 MG CAPSULE PO SCH (08:33)
[2017-03-23] MEDS: AMIODARONE 200 MG TABLET PO SCH ×2 (08:33→22:15)
[2017-03-23] MEDS: LORazepam 0.5 MG TABLET PO SCH ×3 (08:33→22:16)
[2017-03-23] MEDS: LISINOPRIL 20 MG TABLET PO SCH (08:33)
[2017-03-23] MEDS ORDERED: DIGOXIN 0.25 MG TABLET PO ONE (12:25)
[2017-03-23] MEDS: DIGOXIN 0.25 MG TABLET PO SCH (16:29)
[2017-03-23] MEDS: SODIUM CHLORIDE 0.9% 1,000 ML IV SCH (17:46)
[2017-03-23] MEDS: SERTRALINE 50 MG TABLET PO SCH (22:16)
[2017-03-23] MEDS: ATORVASTATIN 80 MG TABLET PO SCH (22:16)
[2017-03-24] MEDS: APIXABAN 5 MG TABLET PO SCH ×2 (08:41→20:53)
[2017-03-24] MEDS: FUROSEMIDE 40 MG TABLET PO SCH (08:41)
[2017-03-24] MEDS: LISINOPRIL 20 MG TABLET PO SCH (08:41)
[2017-03-24] MEDS: LORazepam 0.5 MG TABLET PO SCH ×3 (08:42→20:54)
[2017-03-24] MEDS: AMIODARONE 200 MG TABLET PO SCH ×2 (08:42→20:54)
[2017-03-24] MEDS: TAMSULOSIN 0.4 MG CAPSULE PO SCH (08:42)
[2017-03-24] MEDS: ASPIRIN EC 81 MG TABLET PO SCH (08:42)
[2017-03-24] MEDS: DIGOXIN 0.25 MG TABLET PO SCH (13:00)
[2017-03-24] MEDS: SODIUM CHLORIDE 0.9% 1,000 ML IV SCH (19:06)
[2017-03-24] MEDS ORDERED: BENZONATATE 100 MG CAPSULE PO PRN (20:08)
[2017-03-24] MEDS: ATORVASTATIN 80 MG TABLET PO SCH (20:53)
[2017-03-24] MEDS: SERTRALINE 50 MG TABLET PO SCH (20:54)
[2017-03-25] MEDS: ASPIRIN EC 81 MG TABLET PO SCH ×2 (10:24→13:55)
[2017-03-25] MEDS: AMIODARONE 200 MG TABLET PO SCH ×2 (10:25→13:55)
[2017-03-25] MEDS: LISINOPRIL 20 MG TABLET PO SCH ×2 (10:25→13:56)
[2017-03-25] MEDS: FUROSEMIDE 40 MG TABLET PO SCH ×2 (10:25→13:56)
[2017-03-25] MEDS: APIXABAN 5 MG TABLET PO SCH ×2 (10:25→13:56)
[2017-03-25] MEDS: TAMSULOSIN 0.4 MG CAPSULE PO SCH ×2 (10:25→13:57)
[2017-03-25] MEDS: LORazepam 0.5 MG TABLET PO SCH ×2 (10:25→14:01)
[2017-03-25 10:28] LABS: Basophils % 0.3 % (0.0-0.8); Eosinophils # 0.2 10*3/uL (0.0-0.87); Eosinophils % 1.4 % (0.00-10.9); Hematocrit 39.5 VOL% (42.0-52.0); Hemoglobin 12.7 GM/DL (14.0-18.0); Immature Granulocytes % 0.3 %; Immature Granulocytes Absolute 0.04 #; Lymphocytes # 0.7 10*3/uL (1.4-4.0); Lymphocytes % 6.4 % (21.2-54.2); Mean Corpuscular HGB Conc 32.2 GM/DL (32-36); Mean Corpuscular Hemoglobin 28 PG (27-34); Mean Corpuscular Volume 86.8 FL (87-102); Mean Platelet Volume 10.6 FL (9.6-12.0); Monocytes # 0.7 10*3/uL (0.11-0.8); Monocytes % 6.3 % (1.7-12.7); Neutrophils # 9.8 10*3/uL (1.4-7.4); Neutrophils % 85.3 % (38.7-73.9); Platelet Count 218 T/CUMM (130-400); Red Blood Count 4.55 MC/CUMM (3.8-5.5); Red Cell Distribution Width 16.8 % (9.3-17.3); White Blood Count 11.4 T/CUMM (4-12)
[2017-03-25 10:58] LABS: Calcium 8.1 MG/DL (8.5-10.1); Magnesium 2.3 MG/DL (1.8-2.4); Osmolality,Calculated 281.1 MOS/KG (273-304); Potassium 3.9 MMOL/L (3.5-5.1)
[2017-03-25 11:33] LABS: Free T4 (Free Thyroxine) 1.44 NG/DL (0.76-1.46); Thyroid Stimulating Hormone 0.887 uIU/ml (0.358-3.74)
[2017-03-25] MEDS ORDERED: PROPOFOL 200 MG/20 ML VIAL IV ONE (12:54)
[2017-03-25] MEDS: DIGOXIN 0.25 MG TABLET PO SCH (13:55)
[2017-03-25] MEDS ORDERED: DILTIAZEM 60 MG TABLET PO SCH (15:00)
[2017-03-25 16:06] VITALS: BP 125/70
== END 2017-03-25 17:45 | disposition home or self-care (01) | DRG 310 ==
LOC: N.TELEN → N.SDSINP 16:50 → N.TELEN 18:01 → EDSTATUS 03-20 14:55 → N.CARD 03-20 14:56
PROVIDERS: ADMIT Internal Medicine Clinical Cardiac Electrophysiology; ATTEND Internal Medicine Clinical Cardiac Electrophysiology

== ENCOUNTER 2017-07-22 05:44 | Inpatient (IN) ==
[2017-07-22 07:16] LABS: Calcium 8.7 MG/DL (8.5-10.1); Osmolality,Calculated 288.5 MOS/KG (273-304)
[2017-07-22] MEDS ORDERED: IBUPROFEN 200 MG TABLET PO PRN (07:32)
[2017-07-22] MEDS ORDERED: POTASSIUM CHLORIDE 20 MEQ TABLET PO ONE ×3 (07:33→09:01)
[2017-07-22] MEDS ORDERED: MAGNESIUM SULF RIDER 2 GM in PREMIX 1 EACH IV PRN (07:34)
[2017-07-22] MEDS ORDERED: DOCUSATE SODIUM 100 MG CAPSULE PO PRN (07:34)
[2017-07-22] MEDS ORDERED: MAGNESIUM SULF RIDER 4 GM in PREMIX 1 EACH IV PRN (07:34)
[2017-07-22] MEDS ORDERED: ONDANSETRON 4 MG/2 ML VIAL IV PRN (07:34)
[2017-07-22] MEDS ORDERED: ACETAMINOPHEN 325 MG TABLET PO PRN (07:34)
[2017-07-22] MEDS ORDERED: ceFAZolin 1,000 MG in SYRINGE 1 EACH IV ONE (07:36)
[2017-07-22] MEDS ORDERED: ceFAZolin 1,000 MG VIAL IRRIG ONE (07:36)
[2017-07-22] MEDS ORDERED: SODIUM CHLORIDE 0.9% 1,000 ML IV SCH (08:00)
[2017-07-22] MEDS ORDERED: ASPIRIN CHEW 81 MG TABLET PO ONE (08:28)
[2017-07-22] MEDS: TAMSULOSIN 0.4 MG CAPSULE PO SCH (08:46)
[2017-07-22] MEDS: PANTOPRAZOLE 40 MG TABLET PO SCH (08:46)
[2017-07-22] MEDS: ASPIRIN EC 81 MG TABLET PO SCH (08:47)
[2017-07-22] MEDS ORDERED: AMIODARONE 200 MG TABLET PO SCH (09:00)
[2017-07-22] MEDS: POTASSIUM CHLORIDE 20 MEQ TABLET PO SCH (09:02)
[2017-07-22] MEDS: ATORVASTATIN 80 MG TABLET PO SCH (20:49)
[2017-07-22] MEDS: SERTRALINE 50 MG TABLET PO SCH (20:49)
[2017-07-23 05:31] LABS: Basophils # 0.1 10*3/uL (0.0-0.2); Basophils % 0.6 % (0.0-0.8); Eosinophils # 0.3 10*3/uL (0.0-0.87); Eosinophils % 3.1 % (0.00-10.9); Hematocrit 41.8 VOL% (42.0-52.0); Hemoglobin 13.5 GM/DL (14.0-18.0); Immature Granulocytes % 0.3 %; Immature Granulocytes Absolute 0.03 #; Lymphocytes # 1.5 10*3/uL (1.4-4.0); Lymphocytes % 17.6 % (21.2-54.2); Mean Corpuscular HGB Conc 32.3 GM/DL (32-36); Mean Corpuscular Hemoglobin 26 PG (27-34); Mean Corpuscular Volume 81.2 FL (87-102); Mean Platelet Volume 11.8 FL (9.6-12.0); Monocytes # 0.9 10*3/uL (0.11-0.8); Monocytes % 10.1 % (1.7-12.7); Neutrophils # 5.9 10*3/uL (1.4-7.4); Neutrophils % 68.3 % (38.7-73.9); Platelet Count 196 T/CUMM (130-400); Red Blood Count 5.15 MC/CUMM (3.8-5.5); Red Cell Distribution Width 15.2 % (9.3-17.3); White Blood Count 8.7 T/CUMM (4-12)
[2017-07-23 06:03] LABS: Calcium 8.5 MG/DL (8.5-10.1); Potassium 3.5 MMOL/L (3.5-5.1)
[2017-07-23] MEDS ORDERED: ceFAZolin 1,000 MG in SYRINGE 1 EACH IV ONE (07:00)
[2017-07-23] MEDS ORDERED: ceFAZolin 1,000 MG VIAL IRRIG ONE (07:00)
[2017-07-23] MEDS ORDERED: HEPARIN/NACL 0.9% 2 UNITS/ML 500 ML IV ONE (07:17)
[2017-07-23] MEDS ORDERED: LIDOCAINE 1% 20 ML VIAL ONE (07:17)
[2017-07-23] MEDS ORDERED: fentaNYL 100 MCG/2 ML VIAL ONE ×2 (07:28→07:41)
[2017-07-23] MEDS ORDERED: MIDAZOLAM 2 MG/2 ML VIAL ONE ×2 (07:28→07:40)
[2017-07-23] MEDS ORDERED: TISSUE ADHESIVE 1 EACH APPLICATOR TOP ONE (08:05)
[2017-07-23] MEDS: POTASSIUM CHLORIDE 20 MEQ TABLET PO SCH (09:40)
[2017-07-23] MEDS: CARVEDILOL 25 MG TABLET PO SCH ×2 (09:40→20:57)
[2017-07-23] MEDS: TAMSULOSIN 0.4 MG CAPSULE PO SCH (09:41)
[2017-07-23] MEDS: PANTOPRAZOLE 40 MG TABLET PO SCH (09:42)
[2017-07-23] MEDS: ASPIRIN EC 81 MG TABLET PO SCH (09:42)
[2017-07-23] MEDS: ceFAZolin 1,000 MG in SYRINGE 1 EACH IV SCH ×2 (14:24→23:07)
[2017-07-23] MEDS: SERTRALINE 50 MG TABLET PO SCH (20:57)
[2017-07-23] MEDS: ATORVASTATIN 80 MG TABLET PO SCH (20:57)
[2017-07-24 05:55] LABS: Basophils % 0.5 % (0.0-0.8); Eosinophils # 0.3 10*3/uL (0.0-0.87); Eosinophils % 3.6 % (0.00-10.9); Hematocrit 40.9 VOL% (42.0-52.0); Hemoglobin 12.8 GM/DL (14.0-18.0); Immature Granulocytes % 0.6 %; Immature Granulocytes Absolute 0.05 #; Lymphocytes # 1.4 10*3/uL (1.4-4.0); Lymphocytes % 17.3 % (21.2-54.2); Mean Corpuscular HGB Conc 31.3 GM/DL (32-36); Mean Corpuscular Hemoglobin 26 PG (27-34); Mean Platelet Volume 11.3 FL (9.6-12.0); Monocytes % 12.1 % (1.7-12.7); Neutrophils # 5.2 10*3/uL (1.4-7.4); Neutrophils % 65.9 % (38.7-73.9); Platelet Count 183 T/CUMM (130-400); Red Blood Count 4.93 MC/CUMM (3.8-5.5); Red Cell Distribution Width 15.1 % (9.3-17.3); White Blood Count 7.9 T/CUMM (4-12)
[2017-07-24 06:25] LABS: Calcium 8.6 MG/DL (8.5-10.1); Osmolality,Calculated 285.1 MOS/KG (273-304); Potassium 3.7 MMOL/L (3.5-5.1)
[2017-07-24 07:50] VITALS: BP 141/71
[2017-07-24] MEDS: CARVEDILOL 25 MG TABLET PO SCH (09:57)
[2017-07-24] MEDS: PANTOPRAZOLE 40 MG TABLET PO SCH (09:57)
[2017-07-24] MEDS: POTASSIUM CHLORIDE 20 MEQ TABLET PO SCH (09:57)
[2017-07-24] MEDS: TAMSULOSIN 0.4 MG CAPSULE PO SCH (09:58)
[2017-07-24] MEDS: ASPIRIN EC 81 MG TABLET PO SCH (09:59)
== END 2017-07-24 14:05 | disposition home or self-care (01) | DRG 243 ==
LOC: N.CL 05:44 → N.TELES 07:34
PROVIDERS: ADMIT Internal Medicine Clinical Cardiac Electrophysiology; ATTEND Internal Medicine Clinical Cardiac Electrophysiology

== ENCOUNTER 2018-03-20 14:21 | Inpatient (IN) ==
[2018-03-20] MEDS ORDERED: MORPHINE 4 MG/1 ML VIAL IV PRN (14:57)
[2018-03-20] MEDS: MORPHINE 4 MG/1 ML VIAL IV PRN ×2 (14:57→18:11)
[2018-03-20] MEDS ORDERED: ONDANSETRON 4 MG/2 ML VIAL IV PRN (15:04)
[2018-03-20] MEDS ORDERED: ACETAMINOPHEN 325 MG TABLET PO PRN (15:43)
[2018-03-20 16:01] LABS: Basophils % 0.2 % (0.0-0.8); Eosinophils % 0.3 % (0.00-10.9); Hematocrit 42.7 VOL% (42.0-52.0); Hemoglobin 13.2 GM/DL (14.0-18.0); Immature Granulocytes % 0.6 %; Immature Granulocytes Absolute 0.08 #; Lymphocytes # 0.8 10*3/uL (1.4-4.0); Lymphocytes % 6.2 % (21.2-54.2); Mean Corpuscular HGB Conc 30.9 GM/DL (32-36); Mean Corpuscular Hemoglobin 28 PG (27-34); Mean Corpuscular Volume 90.5 FL (87-102); Mean Platelet Volume 10.4 FL (9.6-12.0); Monocytes # 0.7 10*3/uL (0.11-0.8); Monocytes % 5.7 % (1.7-12.7); Neutrophils # 11.1 10*3/uL (1.4-7.4); Platelet Count 192 T/CUMM (130-400); Red Blood Count 4.72 MC/CUMM (3.8-5.5); Red Cell Distribution Width 14.6 % (9.3-17.3); White Blood Count 12.8 T/CUMM (4-12)
[2018-03-20] MEDS: SODIUM CHLORIDE 0.9% 1,000 ML IV SCH (16:34)
[2018-03-20 16:38] LABS: Albumin 3.2 G/DL (3.4-5.0); Bilirubin,Total 2.9 MG/DL (0.2-1.0); Calcium 8.6 MG/DL (8.5-10.1); Osmolality,Calculated 285.3 MOS/KG (273-304); Potassium 3.6 MMOL/L (3.5-5.1); Total Protein 6.8 G/DL (6.4-8.3)
[2018-03-20] MEDS: LISINOPRIL 20 MG TABLET PO SCH (20:04)
[2018-03-20] MEDS: amLODIPine 5 MG TABLET PO SCH (20:05)
[2018-03-20] MEDS: ATORVASTATIN 80 MG TABLET PO SCH (20:05)
[2018-03-20] MEDS: SERTRALINE 50 MG TABLET PO SCH (20:05)
[2018-03-20] MEDS: CARVEDILOL 25 MG TABLET PO SCH (20:05)
[2018-03-20 21:05] LABS: Apearance,Urine CLEAR (Clear); Bilirubin,Urine Negative (Negative); Blood, Urine Small mg/dL (Negative); Glucose,Urine (UA) Negative (Negative); Ketones,Urine 20 mg/dL (Negative); Mucus,Urine Occasional /LPF (Occasional); Nitrite,Urine Negative (Negative); Protein,Urine Negative; RBC,Urine 2 /HPF (0-4); Urine Color Yellow (Yellow); Urine Specific Gravity 1.019 (1.001-1.035); WBC,Urine 1 /HPF (0-6)
[2018-03-20] MEDS: TEMAZEPAM 15 MG CAPSULE PO SCH (22:56)
[2018-03-21 04:57] LABS: Basophils # 0.1 10*3/uL (0.0-0.2); Basophils % 0.7 % (0.0-0.8); Eosinophils # 0.4 10*3/uL (0.0-0.87); Eosinophils % 2.4 % (0.00-10.9); Hematocrit 40.6 VOL% (42.0-52.0); Hemoglobin 12.4 GM/DL (14.0-18.0); Immature Granulocytes % 0.5 %; Immature Granulocytes Absolute 0.08 #; Lymphocytes # 1.4 10*3/uL (1.4-4.0); Lymphocytes % 9.2 % (21.2-54.2); Mean Corpuscular HGB Conc 30.5 GM/DL (32-36); Mean Corpuscular Hemoglobin 28 PG (27-34); Mean Corpuscular Volume 92.1 FL (87-102); Mean Platelet Volume 11.2 FL (9.6-12.0); Monocytes # 1.1 10*3/uL (0.11-0.8); Neutrophils # 12.2 10*3/uL (1.4-7.4); Neutrophils % 80.2 % (38.7-73.9); Platelet Count 177 T/CUMM (130-400); Red Blood Count 4.41 MC/CUMM (3.8-5.5); Red Cell Distribution Width 14.7 % (9.3-17.3); White Blood Count 15.1 T/CUMM (4-12)
[2018-03-21 05:17] LABS: Calcium 8.5 MG/DL (8.5-10.1); Osmolality,Calculated 287.1 MOS/KG (273-304); Potassium 3.8 MMOL/L (3.5-5.1)
[2018-03-21] MEDS ORDERED: ROPIVACAINE 0.5% 30 ML VIAL ONE (06:30)
[2018-03-21] MEDS ORDERED: ceFAZolin 1,000 MG VIAL ONE ×2 (07:48→07:51)
[2018-03-21] MEDS ORDERED: ceFAZolin 2,000 MG in PREMIX 1 EACH IV ONE (08:01)
[2018-03-21] MEDS ORDERED: diphenhydrAMINE CAP 25 MG CAPSULE PO PRN (09:00)
[2018-03-21] MEDS: LISINOPRIL 20 MG TABLET PO SCH ×2 (09:00→21:38)
[2018-03-21] MEDS ORDERED: BISACODYL 10 MG SUPP RECTAL PRN (09:00)
[2018-03-21] MEDS ORDERED: MAGNESIUM HYDROXIDE SUSP 30 ML UDCUP PO PRN (09:00)
[2018-03-21] MEDS ORDERED: TEMAZEPAM 7.5 MG CAPSULE PO PRN (09:00)
[2018-03-21] MEDS ORDERED: PROMETHAZINE 25 MG/1 ML VIAL IM PRN (09:00)
[2018-03-21] MEDS: DOCUSATE SODIUM 100 MG CAPSULE PO SCH ×2 (09:00→21:38)
[2018-03-21] MEDS ORDERED: LACTULOSE 20 GM/30 ML UDCUP PO PRN (09:00)
[2018-03-21] MEDS: CARVEDILOL 25 MG TABLET PO SCH ×2 (09:00→21:38)
[2018-03-21] MEDS ORDERED: MORPHINE 4 MG/1 ML VIAL IV PRN ×2 (09:05→09:16)
[2018-03-21] MEDS ORDERED: ePHEDrine 50 MG/ML AMP ONE (09:20)
[2018-03-21] MEDS ORDERED: ETOMIDATE 40 MG/20 ML VIAL IV ONE (09:20)
[2018-03-21] MEDS ORDERED: fentaNYL 100 MCG/2 ML VIAL ONE (09:20)
[2018-03-21] MEDS ORDERED: SEVOFLURANE 1 UNIT/15 MINUTE INH ONE (09:20)
[2018-03-21] MEDS ORDERED: PHENYLEPHRINE 1 MG/10 ML SYRINGE IV ONE (09:21)
[2018-03-21] MEDS ORDERED: ROCURONIUM 100 MG/10 ML VIAL IV ONE (09:21)
[2018-03-21] MEDS ORDERED: ACETAMINOPHEN 1,000 MG/100 ML VIAL IV ONE (09:21)
[2018-03-21] MEDS: LACTATED RINGERS 1,000 ML IV SCH (14:11)
[2018-03-21] MEDS: ASPIRIN EC 81 MG TABLET PO SCH (14:23)
[2018-03-21] MEDS: FUROSEMIDE 20 MG TABLET PO SCH (14:24)
[2018-03-21] MEDS: POTASSIUM CHLORIDE 20 MEQ TABLET PO SCH (14:24)
[2018-03-21] MEDS: TAMSULOSIN 0.4 MG CAPSULE PO SCH (14:24)
[2018-03-21] MEDS: SODIUM CHLORIDE 0.9% 1,000 ML IV SCH (15:30)
[2018-03-21] MEDS: ceFAZolin 2,000 MG in PREMIX 1 EACH IV SCH (16:41)
[2018-03-21] MEDS: SERTRALINE 50 MG TABLET PO SCH (21:37)
[2018-03-21] MEDS: ATORVASTATIN 80 MG TABLET PO SCH (21:38)
[2018-03-21] MEDS: amLODIPine 5 MG TABLET PO SCH (21:38)
[2018-03-21] MEDS: TEMAZEPAM 15 MG CAPSULE PO SCH (21:38)
[2018-03-22] MEDS ORDERED: ceFAZolin 2,000 MG in PREMIX 1 EACH IV SCH (02:30)
[2018-03-22] MEDS: ceFAZolin 2,000 MG in PREMIX 1 EACH IV SCH (02:41)
[2018-03-22 05:24] LABS: Basophils # 0.1 10*3/uL (0.0-0.2); Basophils % 0.5 % (0.0-0.8); Eosinophils # 0.5 10*3/uL (0.0-0.87); Eosinophils % 4.8 % (0.00-10.9); Hematocrit 34.9 VOL% (42.0-52.0); Hemoglobin 10.7 GM/DL (14.0-18.0); Immature Granulocytes % 0.5 %; Immature Granulocytes Absolute 0.06 #; Lymphocytes # 1.2 10*3/uL (1.4-4.0); Lymphocytes % 11.1 % (21.2-54.2); Mean Corpuscular HGB Conc 30.7 GM/DL (32-36); Mean Corpuscular Hemoglobin 28 PG (27-34); Mean Corpuscular Volume 92.3 FL (87-102); Mean Platelet Volume 11.2 FL (9.6-12.0); Monocytes # 1.2 10*3/uL (0.11-0.8); Monocytes % 11.3 % (1.7-12.7); Neutrophils # 7.9 10*3/uL (1.4-7.4); Neutrophils % 71.8 % (38.7-73.9); Platelet Count 145 T/CUMM (130-400); Red Blood Count 3.78 MC/CUMM (3.8-5.5); Red Cell Distribution Width 14.6 % (9.3-17.3); White Blood Count 10.9 T/CUMM (4-12)
[2018-03-22 05:53] LABS: Calcium 7.8 MG/DL (8.5-10.1); Potassium 3.8 MMOL/L (3.5-5.1)
[2018-03-22] MEDS: ASPIRIN EC 81 MG TABLET PO SCH (08:59)
[2018-03-22] MEDS: DOCUSATE SODIUM 100 MG CAPSULE PO SCH ×2 (08:59→21:11)
[2018-03-22] MEDS: CARVEDILOL 25 MG TABLET PO SCH ×2 (08:59→21:07)
[2018-03-22] MEDS: APIXABAN 5 MG TABLET PO SCH ×2 (08:59→21:07)
[2018-03-22] MEDS: FUROSEMIDE 20 MG TABLET PO SCH (09:00)
[2018-03-22] MEDS: LISINOPRIL 20 MG TABLET PO SCH ×2 (09:00→21:06)
[2018-03-22] MEDS: TAMSULOSIN 0.4 MG CAPSULE PO SCH (09:04)
[2018-03-22] MEDS: POTASSIUM CHLORIDE 20 MEQ TABLET PO SCH (09:04)
[2018-03-22] MEDS: LACTATED RINGERS 1,000 ML IV SCH (09:16)
[2018-03-22] MEDS: ATORVASTATIN 80 MG TABLET PO SCH (21:07)
[2018-03-22] MEDS: amLODIPine 5 MG TABLET PO SCH (21:07)
[2018-03-22] MEDS: TEMAZEPAM 15 MG CAPSULE PO SCH (21:09)
[2018-03-22] MEDS: SERTRALINE 50 MG TABLET PO SCH (21:11)
[2018-03-22] MEDS: SODIUM CHLORIDE 0.9% 1,000 ML IV SCH (21:13)
[2018-03-23] MEDS: LACTATED RINGERS 1,000 ML IV SCH ×2 (04:39→21:26)
[2018-03-23 05:20] LABS: Basophils % 0.4 % (0.0-0.8); Eosinophils # 0.5 10*3/uL (0.0-0.87); Eosinophils % 4.6 % (0.00-10.9); Hematocrit 34.9 VOL% (42.0-52.0); Hemoglobin 10.5 GM/DL (14.0-18.0); Immature Granulocytes % 0.2 %; Immature Granulocytes Absolute 0.02 #; Lymphocytes # 1.2 10*3/uL (1.4-4.0); Lymphocytes % 11.4 % (21.2-54.2); Mean Corpuscular HGB Conc 30.1 GM/DL (32-36); Mean Corpuscular Hemoglobin 29 PG (27-34); Mean Corpuscular Volume 95.1 FL (87-102); Mean Platelet Volume 11.4 FL (9.6-12.0); Monocytes # 1.2 10*3/uL (0.11-0.8); Monocytes % 11.5 % (1.7-12.7); Neutrophils # 7.2 10*3/uL (1.4-7.4); Neutrophils % 71.9 % (38.7-73.9); Platelet Count 138 T/CUMM (130-400); Red Blood Count 3.67 MC/CUMM (3.8-5.5); Red Cell Distribution Width 14.6 % (9.3-17.3); White Blood Count 10.1 T/CUMM (4-12)
[2018-03-23 05:35] LABS: Calcium 8.4 MG/DL (8.5-10.1); Potassium 4.3 MMOL/L (3.5-5.1)
[2018-03-23] MEDS: CARVEDILOL 25 MG TABLET PO SCH ×2 (09:16→21:25)
[2018-03-23] MEDS: DOCUSATE SODIUM 100 MG CAPSULE PO SCH ×2 (09:16→21:24)
[2018-03-23] MEDS: ASPIRIN EC 81 MG TABLET PO SCH (09:16)
[2018-03-23] MEDS: FUROSEMIDE 20 MG TABLET PO SCH (09:16)
[2018-03-23] MEDS: TAMSULOSIN 0.4 MG CAPSULE PO SCH (09:16)
[2018-03-23] MEDS: APIXABAN 5 MG TABLET PO SCH ×2 (09:16→21:24)
[2018-03-23] MEDS: POTASSIUM CHLORIDE 20 MEQ TABLET PO SCH (09:16)
[2018-03-23] MEDS: LISINOPRIL 20 MG TABLET PO SCH ×2 (09:16→21:25)
[2018-03-23] MEDS: SODIUM CHLORIDE 0.9% 1,000 ML IV SCH (15:30)
[2018-03-23] MEDS: amLODIPine 5 MG TABLET PO SCH (21:24)
[2018-03-23] MEDS: SERTRALINE 50 MG TABLET PO SCH (21:24)
[2018-03-23] MEDS: ATORVASTATIN 80 MG TABLET PO SCH (21:24)
[2018-03-23] MEDS: TEMAZEPAM 15 MG CAPSULE PO SCH (21:25)
[2018-03-24] MEDS: APIXABAN 5 MG TABLET PO SCH ×2 (08:56→20:30)
[2018-03-24] MEDS: LISINOPRIL 20 MG TABLET PO SCH ×2 (08:56→20:33)
[2018-03-24] MEDS: ASPIRIN EC 81 MG TABLET PO SCH (08:56)
[2018-03-24] MEDS: DOCUSATE SODIUM 100 MG CAPSULE PO SCH ×2 (08:56→20:31)
[2018-03-24] MEDS: FUROSEMIDE 20 MG TABLET PO SCH (08:57)
[2018-03-24] MEDS: CARVEDILOL 25 MG TABLET PO SCH ×2 (08:57→20:30)
[2018-03-24] MEDS: POTASSIUM CHLORIDE 20 MEQ TABLET PO SCH (08:57)
[2018-03-24] MEDS: POLYETHYLENE GLYCOL POWDER 17 GM PACK PO SCH (08:57)
[2018-03-24] MEDS: TAMSULOSIN 0.4 MG CAPSULE PO SCH (08:57)
[2018-03-24] MEDS: SERTRALINE 50 MG TABLET PO SCH (20:30)
[2018-03-24] MEDS: ATORVASTATIN 80 MG TABLET PO SCH (20:30)
[2018-03-24] MEDS: amLODIPine 5 MG TABLET PO SCH (20:31)
[2018-03-24] MEDS: TEMAZEPAM 15 MG CAPSULE PO SCH (20:31)
[2018-03-25] MEDS: ASPIRIN EC 81 MG TABLET PO SCH (09:29)
[2018-03-25] MEDS: POTASSIUM CHLORIDE 20 MEQ TABLET PO SCH (09:29)
[2018-03-25] MEDS: APIXABAN 5 MG TABLET PO SCH (09:29)
[2018-03-25] MEDS: FUROSEMIDE 20 MG TABLET PO SCH (09:29)
[2018-03-25] MEDS: CARVEDILOL 25 MG TABLET PO SCH (09:29)
[2018-03-25] MEDS: DOCUSATE SODIUM 100 MG CAPSULE PO SCH ×2 (09:29→10:08)
[2018-03-25] MEDS: LISINOPRIL 20 MG TABLET PO SCH (09:29)
[2018-03-25] MEDS: TAMSULOSIN 0.4 MG CAPSULE PO SCH (09:29)
[2018-03-25] MEDS: POLYETHYLENE GLYCOL POWDER 17 GM PACK PO SCH (09:30)
[2018-03-25 17:10] VITALS: BP 141/81
== END 2018-03-25 18:00 | DRG 470 ==
LOC: N.3E 14:21
PROVIDERS: ADMIT Orthopaedic Surgery; ATTEND Orthopaedic Surgery